=== PATIENT | male | born 1975 | race African-American/Black ===

== ENCOUNTER 2020-09-11 00:19 | Emergency (ER) | payer OTHER ==
[~2020-09-11] VITALS: Ht 198.1 cm; Wt 95.0 kg
[2020-09-11 00:20] VITALS: BP 135/78
[2020-09-11] MEDS ORDERED: CLIN300C8 PO (00:50)
[2020-09-11] MEDS ORDERED: TRAM50TA PO (00:50)
--- NOTE | 2020-09-11 00:50 | PHYS DOC ---
Past History Past Medical History: No Pertinent History Past Surgical History: No Surgical History Alcohol Use: None Drug Use: None General Adult EDM: Chief Complaint: DENTAL PROBLEM HPI: HPI: 45-year-old male presents with right upper dental pain. The patient believes that he has an infected tooth. He had a crown over this tooth that fell off and the tooth has been breaking down for some time. Over the last 2 weeks it has been bothering him more. He has an appointment scheduled with his dentist on Monday. He came in tonight because today the pain got much worse and he knows he needs to do something before Monday. Patient denies fever chills. He has no other complaints at this time. Review of Systems: Review of Systems: Constitutional: Denies fever or chills Eyes: Denies change in visual acuity HENT: Dental pain Respiratory: Denies cough or shortness of breath Cardiovascular: Denies chest pain or edema GI: Denies abdominal pain, nausea, vomiting, bloody stools or diarrhea : Denies dysuria Musculoskeletal: Denies back pain or joint pain Integument: Denies rash Neurologic: Denies headache, focal weakness or sensory changes Endocrine: Denies polyuria or polydipsia Lymphatic: Denies swollen glands Psychiatric: Denies depression or anxiety Allergies: Allergies: Allergies Coded Allergies Type Severity Reaction Last Updated Verified No Known Drug Allergies 10/01/14 No Physical Exam: PE: Constitutional: Well developed, well nourished, no acute distress, non-toxic appearance. [] HENT: Normocephalic, atraumatic, bilateral external ears normal. Right upper dental infection with cracked tooth. [] Eyes: PERRLA, EOMI, conjunctiva normal, no discharge. [] Neck: Normal range of motion, no tenderness, supple, no stridor. [] Cardiovascular:Heart rate regular rhythm, no murmur [] Lungs & Thorax: Bilateral breath sounds clear to auscultation [] Abdomen: Bowel sounds normal, soft, no tenderness, no masses, no pulsatile masses. [] Skin: Warm, dry, no erythema, no rash. [] Back: No tenderness, no CVA tenderness. [] Extremities: No tenderness, no cyanosis, no clubbing, ROM intact, no edema. [] Neurologic: Alert and oriented X 3, normal motor function, normal sensory function, no focal deficits noted. [] Psychologic: Affect normal, judgement normal, mood normal. [] EKG: EKG: [] Radiology/Procedures: Radiology/Procedures: [] Heart Score: Risk Factors: Risk Factors: DM, Current or recent (<one month) smoker, HTN, HLP, family history of CAD, obesity. Risk Scores: Score 0 - 3: 2.5% MACE over next 6 weeks - Discharge Home Score 4 - 6: 20.3% MACE over next 6 weeks - Admit for Clinical Observation Score 7 - 10: 72.7% MACE over next 6 weeks - Early Invasive Strategies Course & Med Decision Making: Course & Med Decision Making Pertinent Labs and Imaging studies reviewed. (See chart for details) The patient does appear to have an infection. I will treat him with clindamycin for 7 days. We will give the first dose in the ED. I will also give him a to go pack of tramadol and a prescription for the same. He is stable for discharge at this time [] Dragon Disclaimer: Dragon Disclaimer: This electronic medical record was generated, in whole or in part, using a voice recognition dictation system. Departure Departure: Impression: Primary Impression: Dental infection Disposition: 01 DC HOME SELF CARE/HOMELESS Condition: STABLE Referrals: ANETTE LEZAMA MD (PCP) Patient Instructions: Dental Abscess Scripts Tramadol Hcl (TRAMADOL HCL) 50 Mg Tablet 50 MG PO PRN Q6HRS PRN for PAIN, #14 TAB Prov: GARRY AMEZQUITA DO 09/11/20 Clindamycin Hcl (CLINDAMYCIN HCL) 300 Mg Capsule 1 CAP PO TID for dental infection, #21 CAP Prov: GARRY AMEZQUITA DO 09/11/20 GARRY AMEZQUITA DO Sep 11, 2020 00:50
[2020-09-11] MEDS ORDERED: START PACK - traMADol 1 STARTPACK TABLET PO ONE ×2 (00:54→01:15)
[2020-09-11] MEDS ORDERED: CLINDAMYCIN HCL 150 MG CAPSULE ONE (00:54)
[2020-09-11] MEDS ORDERED: CLINDAMYCIN HCL 150 MG CAPSULE PO ONE (01:15)
== END 2020-09-11 01:00 | disposition home or self-care (01) ==
LOC: ER 00:19
DX: K04.7 Periapical abscess without sinus (principal); K08.89 Other specified disorders of teeth and supporting structures
CPT/HCPCS: 99283

== ENCOUNTER 2020-09-16 20:38 | Emergency (ER) | payer OTHER ==
[~2020-09-16] VITALS: Ht 198.1 cm; Wt 104.5 kg
[~2020-09-16 20:38] MED LIST: CLIN300C8 PO; TRAM50TA PO
[2020-09-16 20:45] VITALS: BP 138/79
[2020-09-16] MEDS ORDERED: START PACK - traMADol 1 STARTPACK TABLET PO ONE (21:15)
[2020-09-16] MEDS ORDERED: TRAM50TA PO (21:22)
--- NOTE | 2020-09-16 21:22 | PHYS DOC ---
Past History Past Medical History: No Pertinent History Past Surgical History: No Surgical History Alcohol Use: None Drug Use: None Adult General Chief Complaint Chief Complaint: DENTAL PROBLEM HPI HPI Patient is a 45-year-old male patient presenting to the ED today complaining of mild intermittent right upper gum dental pain that has been going on for for 1 week. Patient was seen in the ED 5 days ago and was sent home on clindamycin and tramadol. He states he had an appointment with a dentist on Monday but the appointment was canceled because the provider tested positive for COVID-19. He states he has an appointment with [facility] on Monday this week. Denies any fever or trismus. Review of Systems Review of Systems Constitutional: Denies fever or chills [] Eyes: Denies change in visual acuity, redness, or eye pain [] HENT: Reports dental pain, denies nasal congestion or sore throat [] Musculoskeletal: Denies back pain or joint pain [] Integument: Denies rash or skin lesions [] Neurologic: Denies headache, focal weakness or sensory changes [] All other systems were reviewed and found to be within normal limits, except as documented in this note. Current Medications Current Medications Current Medications Medications (Trade) Dose Ordered Sig/Daniel Start Time Stop Time Status Last Admin Dose Admin Tramadol HCl (Starter Pack - Ultram) 1 startpack 1X ONCE 09/16/20 21:15 09/16/20 21:16 UNV Allergies Allergies Allergies Coded Allergies Type Severity Reaction Last Updated Verified No Known Drug Allergies 09/16/20 No Physical Exam Physical Exam Constitutional: Well developed, well nourished, no acute distress, non-toxic appearance. [] HENT: Normocephalic, atraumatic, bilateral external ears normal, oropharynx moist, no oral exudates, nose normal. [] Right upper gum around the mollars with missing broken teeth with remaining p ieces decayed. no dental abscess or erythema. dental dental on the right lower mollar. Skin: Warm, dry, no erythema, no rash. [] Back: No tenderness, no CVA tenderness. [] Extremities: No tenderness, no cyanosis, no clubbing, ROM intact, no edema. [] Neurologic: Alert and oriented X 3, normal motor function, normal sensory function, no focal deficits noted. [] Psychologic: Affect normal, judgement normal, mood normal. [] Current Patient Data Vital Signs Vital Signs Date Time Temp Pulse Resp B/P (MAP) Pulse Ox O2 Delivery O2 Flow Rate FiO2 09/16/20 20:45 97.6 90 20 138/79 (98) 98 Room Air EKG EKG [] Radiology/Procedures Radiology/Procedures [] Heart Score Risk Factors: Risk Factors: DM, Current or recent (<one month) smoker, HTN, HLP, family history of CAD, obesity. Risk Scores: Risk Factors: DM, Current or recent (<one month) smoker, HTN, HLP, family history of CAD, obesity. Course & Med Decision Making Course & Med Decision Making Pertinent Labs and Imaging studies reviewed. (See chart for details) This is a 45-year-old male who presents to the ED today for dental pain. He was seen in the ED 5 days ago and was started on clindamycin and tramadol. He ran out of pain medicine. Has an appointment with the dentist on Monday. He was encouraged to follow-up. Dragon Disclaimer Dragon Disclaimer This electronic medical record was generated, in whole or in part, using a voice recognition dictation system. Departure Departure: Impression: Primary Impression: Dentalgia Additional Impression: Infected dental carries Disposition: 01 DC HOME SELF CARE/HOMELESS Condition: STABLE Referrals: ANETTE LEZAMA MD (PCP) follow up in 1-2 weeks Patient Instructions: Dental Pain Additional Instructions: You were was seen for dental pain. Please follow-up with your dentist on Monday as scheduled. Come back to the ED at any point symptoms worsen. Make sure you complete your antibiotics Scripts Tramadol Hcl (TRAMADOL HCL) 50 Mg Tablet 50 MG PO PRN Q6HRS PRN for PAIN, #12 TAB Prov: ERIC SAINI TRADE SALES ASSISTANT 09/16/20 Problem Qualifiers PARVEENERIC TRADE SALES ASSISTANT Sep 16, 2020 21:22
== END 2020-09-16 21:20 | disposition home or self-care (01) ==
LOC: ER 20:38
DX: K02.9 Dental caries, unspecified (principal); K04.7 Periapical abscess without sinus
CPT/HCPCS: 99283

== ENCOUNTER 2020-09-28 20:25 | Emergency (ER) | payer OTHER ==
[~2020-09-28] VITALS: Ht 198.1 cm; Wt 104.9 kg
[2020-09-28 20:30] VITALS: BP 130/77
--- NOTE | 2020-09-28 20:44 | PHYS DOC ---
Past History Past Medical History: No Pertinent History Past Surgical History: No Surgical History Smoking: Cigarettes Alcohol Use: None Drug Use: None General Adult EDM: Chief Complaint: DENTAL PROBLEM HPI: HPI: ".. I got bad teeth .. this one in back is giving me fits tonight... I got the antibiotics.. I got the follow up across the street.. just need something to get me by tonight..." Patient is a 45 year old male who presents with above hx and dental pain. Patient localizes pain to teeth #1 and 2. Does have multiple other areas of decay. Tooth it location 1 is rotted into the gum. Is very tender to touch. There is no pointing abscess. There is no trismus. There is surrounding gingivitis. There is no adenopathy at angle of jaw. Patient denies any history of immunosuppression. No recent travel outside the [place] area. No specific ill contacts. Patient does have follow-up appointment. Pt. did see Dr. Lezama earlier today. Review of Systems: Review of Systems: Constitutional: Denies fever or chills Eyes: Denies change in visual acuity HENT: Complains of dental pain Respiratory: Denies cough or shortness of breath Cardiovascular: Denies chest pain or edema GI: Denies abdominal pain, nausea, vomiting, bloody stools or diarrhea : Denies dysuria Musculoskeletal: Denies back pain or joint pain Integument: Denies rash Neurologic: Denies headache, focal weakness or sensory changes Endocrine: Denies polyuria or polydipsia Lymphatic: Denies swollen glands Psychiatric: Denies depression or anxiety Family History: Family History: Noncontributory to presentation Current Medications: Current Meds: See nursing for home meds Allergies: Allergies: Allergies Coded Allergies Type Severity Reaction Last Updated Verified No Known Drug Allergies 09/16/20 No Physical Exam: PE: Constitutional: , no acute distress, non-toxic appearance. [] HENT: Normocephalic, atraumatic, bilateral external ears normal, oropharynx moist, no oral exudates, nose normal. Multiple dental caries. Patient localizes pain primarily in area of teeth 1, and 2 Eyes: PERRLA, EOMI, conjunctiva normal, no discharge. [] Neck: Normal range of motion, no tenderness, supple, no stridor. [] Cardiovascular:Heart rate regular rhythm, no murmur [] Lungs & Thorax: Bilateral breath sounds equal apex with scattered wheezes on auscultation [] Abdomen: Bowel sounds normal, soft, no tenderness, no masses, no pulsatile masses. [] Skin: Warm, dry, no erythema, no rash. [] Back: No tenderness, no CVA tenderness. [] Extremities: No tenderness, no cyanosis, no clubbing, ROM intact, no edema. [] Neurologic: Alert and oriented X 3, normal motor function, normal sensory function, no focal deficits noted. [] Psychologic: Affect anxious , judgement normal, mood normal. [] EKG: EKG: [] Radiology/Procedures: Radiology/Procedures: [] Heart Score: Risk Factors: Risk Factors: DM, Current or recent (<one month) smoker, HTN, HLP, family history of CAD, obesity. Risk Scores: Score 0 - 3: 2.5% MACE over next 6 weeks - Discharge Home Score 4 - 6: 20.3% MACE over next 6 weeks - Admit for Clinical Observation Score 7 - 10: 72.7% MACE over next 6 weeks - Early Invasive Strategies Course & Med Decision Making: Course & Med Decision Making Pertinent Labs and Imaging studies reviewed. (See chart for details) Patient continue antibiotics as previous directed. Take Tylenol and ibuprofen for pain. Patient to keep keep dental follow-up. Patient was given IM injection of Toradol here for his pain. Impression: 1. Multiple dental caries 2.. Exacerbation of dental pain in teeth area 1 and 2 3. Dental infection. [] Dragon Disclaimer: Dragon Disclaimer: This electronic medical record was generated, in whole or in part, using a voice recognition dictation system. Departure Departure: Referrals: ANETTE LEZAMA MD (PCP) LUIGI UGARTE MD Sep 28, 2020 20:44
[2020-09-28] MEDS ORDERED: KETOROLAC 60 MG/2 ML VIAL. IM ONE (21:00)
== END 2020-09-28 21:35 | disposition home or self-care (01) ==
LOC: ER 20:25
DX: K02.9 Dental caries, unspecified (principal); K04.7 Periapical abscess without sinus; F17.210 Nicotine dependence, cigarettes, uncomplicated
CPT/HCPCS: 96372; 99283; J1885

== ENCOUNTER 2020-10-04 17:15 | Emergency (ER) | payer OTHER | END 2020-10-04 17:20 | disposition left against medical advice (07) | LOC: ER 17:15 | DX: R52 Pain, unspecified (principal); Z53.21 Procedure and treatment not carried out due to patient leaving prior to being seen by health care provider ==

== ENCOUNTER 2020-10-05 22:59 | Emergency (ER) | payer OTHER ==
[~2020-10-05] VITALS: Ht 198.1 cm; Wt 93.0 kg
--- NOTE | 2020-10-05 23:26 | PHYS DOC ---
Past History Past Medical History: No Pertinent History Past Surgical History: No Surgical History Smoking: Cigarettes Alcohol Use: None Drug Use: None General Adult EDM: Chief Complaint: LACERATION/AVULSION HPI: HPI: Patient is a 45 year old male who presents for evaluation of a cut to the proximal portion palm side right fifth finger. Patient cut with a box maker wood prior to arrival. It appears to be superficial and there is no deficits to sensation or tendon function. Patient will need tetanus shot update. Wound is otherwise stable and unremarkable Review of Systems: Review of Systems: Constitutional: Denies fever or chills Eyes: Denies change in visual acuity HENT: Denies nasal congestion or sore throat Respiratory: Denies cough or shortness of breath Cardiovascular: Denies chest pain or edema GI: Denies abdominal pain, nausea, vomiting, bloody stools or diarrhea : Denies dysuria Musculoskeletal: Denies back pain or joint pain Integument: Denies rash Neurologic: Denies headache, focal weakness or sensory changes Endocrine: Denies polyuria or polydipsia Lymphatic: Denies swollen glands Psychiatric: Denies depression or anxiety Allergies: Allergies: Allergies Coded Allergies Type Severity Reaction Last Updated Verified No Known Drug Allergies 09/16/20 No Physical Exam: PE: Constitutional: Well developed, well nourished, no acute distress, non-toxic ap pearance. [] HENT: Normocephalic, atraumatic, bilateral external ears normal, oropharynx moist, nose normal. [] Eyes: PERRL, EOMI, conjunctiva normal, no discharge. [] Neck: Normal range of motion, no tenderness. [] Cardiovascular:Heart rate regular rhythm, no murmur [] Lungs & Thorax: Bilateral breath sounds clear to auscultation [] Abdomen: Bowel sounds normal, soft, no tenderness, no masses. [] Skin: Warm, dry, no erythema, no rash. [] Back: No tenderness. [] Extremities: No tenderness, no cyanosis, cut on right 5th finger, ROM intact, no edema. [] Neurologic: Alert and oriented, normal motor function, normal sensory function, no focal deficits noted. [] Psychologic: Affect normal, judgement normal, mood normal. [] EKG: EKG: [] Radiology/Procedures: Radiology/Procedures: [] Heart Score: Risk Factors: Risk Factors: DM, Current or recent (<one month) smoker, HTN, HLP, family history of CAD, obesity. Risk Scores: Score 0 - 3: 2.5% MACE over next 6 weeks - Discharge Home Score 4 - 6: 20.3% MACE over next 6 weeks - Admit for Clinical Observation Score 7 - 10: 72.7% MACE over next 6 weeks - Early Invasive Strategies Course & Med Decision Making: Course & Med Decision Making Pertinent Labs and Imaging studies reviewed. (See chart for details) [] Dragon Disclaimer: Dragon Disclaimer: This electronic medical record was generated, in whole or in part, using a voice recognition dictation system. Departure Departure: Impression: Primary Impression: Finger laceration Qualified Codes: S61.216A - Laceration without foreign body of right little finger without damage to nail, initial encounter Disposition: 01 DC HOME SELF CARE/HOMELESS Condition: STABLE Referrals: ANETTE LEZAMA MD (PCP) Patient Instructions: Laceration Care, Adult Additional Instructions: Keep finger clean and dry, your wound was closed with Dermabond. Use gentle soap and water to clean wound only Laceration/Wound Repair Laceration/Wound Repair : Wound Location: upper extremity Wound's Depth, Shape: superficial Wound Length (cm): 1 Wound Explored: clean Betadine Prep?: No Wound Repaired With: Dermabond Layer Closure?: No Sterile Dressing Applied?: Yes Splint Applied?: No Progress Stable, copy is on the proximal portion volar side right fifth finger, neurovascular intact with no tendon or neurologic deficit CARTER JORGE DO Oct 05, 2020 23:26
[2020-10-05] MEDS ORDERED: DIPH,PERTUSS(ACELL),TET VAC/PF 0.5 ML SYRINGE. VAX IM ONE ×2 (23:45→23:52)
[2020-10-06 00:04] VITALS: BP 130/68
[2020-10-07] MEDS ORDERED: TRAM50TA PO (01:14)
[2020-10-07] MEDS ORDERED: AMOX1TAB61 PO (01:14)
== END 2020-10-06 00:07 | disposition home or self-care (01) ==
LOC: ER 22:59
DX: S61.216A Laceration without foreign body of right little finger without damage to nail, initial encounter (principal); F17.210 Nicotine dependence, cigarettes, uncomplicated; W26.8XXA Contact with other sharp object(s), not elsewhere classified, initial encounter; Y93.89 Activity, other specified; Y92.89 Other specified places as the place of occurrence of the external cause; Y99.8 Other external cause status
CPT/HCPCS: 12001; 90471; 90715; 99283

== ENCOUNTER 2020-10-07 00:39 | Emergency (ER) | payer OTHER ==
[~2020-10-07] VITALS: Ht 198.1 cm; Wt 102.8 kg
[2020-10-07 00:59] VITALS: BP 125/68
[2020-10-07] MEDS ORDERED: AMOX1TAB61 PO (01:14)
[2020-10-07] MEDS ORDERED: TRAM50TA PO (01:14)
--- NOTE | 2020-10-07 01:14 | PHYS DOC ---
Past History Past Medical History: No Pertinent History Past Surgical History: No Surgical History Smoking: Cigarettes Alcohol Use: None Drug Use: None General Adult EDM: Chief Complaint: DENTAL PROBLEM HPI: HPI: 45-year-old male presents with right upper dental pain. The patient has had intermittent trouble with this part of his mouth for quite some time. He has an appointment to have the rest of his teeth removed on the , 5 days from now. It has been bothering him more yesterday and again today. He is concerned about having an infection again he took clindamycin a few weeks ago and it helped for a while. He denies fever or chills. He has no other complaints at this time. Review of Systems: Review of Systems: Constitutional: Denies fever or chills Eyes: Denies change in visual acuity HENT: Dental pain Respiratory: Denies cough or shortness of breath Cardiovascular: Denies chest pain or edema GI: Denies abdominal pain, nausea, vomiting, bloody stools or diarrhea : Denies dysuria Musculoskeletal: Denies back pain or joint pain Integument: Denies rash Neurologic: Denies headache, focal weakness or sensory changes Endocrine: Denies polyuria or polydipsia Lymphatic: Denies swollen glands Psychiatric: Denies depression or anxiety Allergies: Allergies: Allergies Coded Allergies Type Severity Reaction Last Updated Verified No Known Drug Allergies 09/16/20 No Physical Exam: PE: Constitutional: Well developed, well nourished, no acute distress, non-toxic appearance. [] HENT: Normocephalic, atraumatic, bilateral external ears normal, oropharynx moist, no oral exudates, nose normal. Dental caries. Right upper molar broken with erythematous gums. [] Eyes: PERRLA, EOMI, conjunctiva normal, no discharge. [] Neck: Normal range of motion, no tenderness, supple, no stridor. [] Cardiovascular:Heart rate regular rhythm, no murmur [] Lungs & Thorax: Bilateral breath sounds clear to auscultation [] Abdomen: Bowel sounds normal, soft, no tenderness, no masses, no pulsatile masses. [] Skin: Warm, dry, no erythema, no rash. [] Back: No tenderness, no CVA tenderness. [] Extremities: No tenderness, no cyanosis, no clubbing, ROM intact, no edema. [] Neurologic: Alert and oriented X 3, normal motor function, normal sensory function, no focal deficits noted. [] Psychologic: Affect normal, judgement normal, mood normal. [] Current Patient Data: Vital Signs: Vital Signs Date Time Temp Pulse Resp B/P (MAP) Pulse Ox O2 Delivery O2 Flow Rate FiO2 10/07/20 00:59 97.7 81 18 125/68 (87) 98 Room Air EKG: EKG: [] Radiology/Procedures: Radiology/Procedures: [] Heart Score: Risk Factors: Risk Factors: DM, Current or recent (<one month) smoker, HTN, HLP, family history of CAD, obesity. Risk Scores: Score 0 - 3: 2.5% MACE over next 6 weeks - Discharge Home Score 4 - 6: 20.3% MACE over next 6 weeks - Admit for Clinical Observation Score 7 - 10: 72.7% MACE over next 6 weeks - Early Invasive Strategies Course & Med Decision Making: Course & Med Decision Making Pertinent Labs and Imaging studies reviewed. (See chart for details) [] Dragon Disclaimer: Dragon Disclaimer: This electronic medical record was generated, in whole or in part, using a voice recognition dictation system. Departure Departure: Impression: Primary Impression: Infected dental carries Disposition: 01 DC HOME SELF CARE/HOMELESS Condition: STABLE Referrals: ANETTE LEZAMA MD (PCP) Patient Instructions: Dental Pain, [id number] Scripts Tramadol Hcl (TRAMADOL HCL) 50 Mg Tablet 50 MG PO PRN Q6HRS PRN for PAIN, #10 TAB Prov: GARRY AMEZQUITA DO 10/07/20 Amoxicillin/Potassium Clav (AUGMENTIN 875-125 TABLET) 1 Each Tablet 1 TAB PO BID for dental infection for 7 Days, #14 TAB 0 Refills Prov: GARRY AMEZQUITA DO 10/07/20 GARRY AMEZQUITA DO Oct 07, 2020 01:14
[2020-10-07] MEDS ORDERED: AMOXICILLIN/K CLAV 875/125MG TABLET. PO ONE (01:15)
[2020-10-07] MEDS ORDERED: START PACK - traMADol 1 STARTPACK TABLET PO ONE (01:30)
== END 2020-10-07 01:31 | disposition home or self-care (01) ==
LOC: ER 00:39
DX: K02.9 Dental caries, unspecified (principal); K04.7 Periapical abscess without sinus; F17.210 Nicotine dependence, cigarettes, uncomplicated
CPT/HCPCS: 99283

== ENCOUNTER 2020-10-18 16:19 | Emergency (ER) | payer OTHER ==
[~2020-10-18] VITALS: Ht 198.1 cm; Wt 100.8 kg
[~2020-10-18 16:19] MED LIST changes: +AMOX1TAB61 PO
[2020-10-18 17:09] VITALS: BP 135/80
[2020-10-18] MEDS ORDERED: ACETAMINOPHEN 325 MG TABLET PO ONE (17:15)
--- NOTE | 2020-10-18 17:18 | PHYS DOC ---
Past History Past Medical History: No Pertinent History Past Surgical History: No Surgical History Smoking: Cigarettes Alcohol Use: None Drug Use: None Adult General Chief Complaint Chief Complaint: LACERATION/AVULSION HPI HPI Patient is a 45-year-old male who presents for a left ring finger injury. Reports he was on his way to work trying to grab something on kitchen counter and accidentally grabbed a knife which penetrated the lateral portion of his left ring finger. There is no nailbed involvement. Is not on any blood thinners, has no concerning motor and/or sensory loss, no focal deficits. He is unsure if there was any foreign body retained. He does admit he recently had Tdap updated at our facility less than 1 month ago Review of Systems Review of Systems Fourteen body systems of review of systems have been reviewed. See HPI for pertinent positives and negative responses, other gray all other systems are negative, non-pertinent or non-contributory Current Medications Current Medications Current Medications Medications (Trade) Dose Ordered Sig/Daniel Start Time Stop Time Status Last Admin Dose Admin Acetaminophen (Tylenol) 650 mg 1X ONCE 10/18/20 17:15 10/18/20 17:16 UNV Allergies Allergies Allergies Coded Allergies Type Severity Reaction Last Updated Verified No Known Drug Allergies 09/16/20 No Physical Exam Physical Exam Constitutional: Well developed, well nourished, no acute distress, non-toxic appearance. HENT: Normocephalic, atraumatic, bilateral external ears normal, oropharynx moist, no oral exudates, nose normal. Eyes: PERRLA, EOMI, conjunctiva normal, no discharge. Neck: Normal range of motion, no tenderness, supple, no stridor. Cardiovascular: Heart rate regular, sinus rhythm, no murmurs rubs or gallops Lungs & Thorax: Bilateral breath sounds clear to auscultation Abdomen: Bowel sounds normal, soft, no tenderness, no masses, no pulsatile masses. Nonsurgical abdomen, no peritoneal signs Skin: Warm, dry, no erythema, no rash. Lacerated noted to lateral aspect of left ring finger approximately 9 mm in length, vertical orientation without any obvious foreign body involvement, no muscle and/or tendon involvement Back: No tenderness, no CVA tenderness. Extremities: No tenderness, no cyanosis, no clubbing, ROM intact, no edema. Cap refill less than 3 seconds in bilateral upper extremities, 2+ pulses Neurologic: Alert and oriented X 3, upper extremity normal motor & sensory function, median, ulnar and radial nerves intact, no focal deficits noted. Psychologic: Affect normal, judgement normal, anxious mood Current Patient Data Vital Signs Vital Signs Date Time Temp Pulse Resp B/P (MAP) Pulse Ox O2 Delivery O2 Flow Rate FiO2 10/18/20 17:09 98.6 72 18 135/80 (98) 97 Room Air EKG EKG [] Radiology/Procedures Radiology/Procedures [] Heart Score Risk Factors: Risk Factors: DM, Current or recent (<one month) smoker, HTN, HLP, family history of CAD, obesity. Risk Scores: Risk Factors: DM, Current or recent (<one month) smoker, HTN, HLP, family history of CAD, obesity. Course & Med Decision Making Course & Med Decision Making ABCs unremarkable Laceration without foreign body confirmed by radiograph. Patient up-to-date on tetanus. No indication for laceration repair given size and well approximated borders. Advised ongoing supportive care with close outpatient follow-up advised. No indication for antibiotics. Patient well-appearing, educated him on strict return precautions with good understanding, all questions and concerns addressed prior to ER departure in stable condition Dragon Disclaimer Dragon Disclaimer This electronic medical record was generated, in whole or in part, using a voice recognition dictation system. Departure Departure: Impression: Primary Impression: Laceration of finger of left hand Disposition: 01 DC HOME SELF CARE/HOMELESS Condition: STABLE Referrals: ANETTE LEZAMA MD (PCP) Patient Instructions: Fingertip Laceration, Laceration Care, Adult Additional Instructions: As discussed prior to ER departure, please call your primary care physician to discuss role of outpatient follow-up in upcoming 5 to 14 days after ER departure Please continue supportive care for your finger laceration. As discussed, please use Vaseline or Aquaphor and cover daily. Please continue good hand hygiene watching with soap and water per her usual routine. There is no indication for antibiotics. There is no indication for Tdap as you are already up-to-date on this If any concerning signs or symptoms present prior to outpatient follow-up please do not hesitate to come back for repeat examination Is a pleasure to take care of you and I wish you a speedy recovery! TEJ LAFLEUR DO Oct 18, 2020 17:18
--- NOTE | 2020-10-18 17:41 | RAD ---
Three-view right hand study Clinical indications: Laceration injury involving the ring finger. FINDINGS: No acute fracture or dislocation or lytic process is seen. No radiopaque foreign body is evident. IMPRESSION: No acute osseous abnormality. Electronically signed by: Matheus Montiel MD (10/18/2020 5:38 PM) [id number]
== END 2020-10-18 17:47 | disposition home or self-care (01) ==
LOC: ER 16:19
DX: S61.215A Laceration without foreign body of left ring finger without damage to nail, initial encounter (principal); F17.210 Nicotine dependence, cigarettes, uncomplicated; W26.0XXA Contact with knife, initial encounter; Y93.89 Activity, other specified; Y92.89 Other specified places as the place of occurrence of the external cause; Y99.8 Other external cause status
CPT/HCPCS: 73130; 99283

== ENCOUNTER 2020-10-30 19:32 | Emergency (ER) | payer OTHER ==
[~2020-10-30] VITALS: Ht 198.1 cm; Wt 104.0 kg
[2020-10-30 19:56] VITALS: BP 156/83
[2020-10-30] MEDS ORDERED: CHLO15MO2 SWSP (20:00)
[2020-10-30] MEDS ORDERED: NAPR-514 PO (20:00)
[2020-10-30] MEDS ORDERED: HYDR-2155 PO (20:00)
[2020-10-30] MEDS ORDERED: CLIN300C8 PO (20:03)
--- NOTE | 2020-10-30 20:03 | PHYS DOC ---
Past History Past Medical History: Asthma, COPD Past Surgical History: No Surgical History Smoking: Cigarettes Alcohol Use: None Drug Use: None General Adult EDM: Chief Complaint: DENTAL PROBLEM HPI: HPI: Patient is a 45-year-old AA male who presents to the emergency department with complaints of right upper quadrant dental pain for the last 3 days. Patient states that he has an appointment with his dentist on the of this month to have the teeth taken care of. He denies any fever, cough, nausea, vomiting, ear pain, or sore throat. He currently rates pain a 10 out of 10 on the pain scale. Patient states he has tried taking [id number] Tylenol and ibuprofen with no relief of his discomfort. He reports that he finished taking antibiotics that were prescribed by his dentist 2 weeks ago recently. Review of Systems: Review of Systems: Complete ROS is negative unless otherwise noted in HPI. Allergies: Allergies: Allergies Coded Allergies Type Severity Reaction Last Updated Verified No Known Drug Allergies 09/16/20 No Physical Exam: PE: See Above Constitutional: Well developed, well nourished, no acute distress, non-toxic appearance. [] HENT: Normocephalic, atraumatic, bilateral external ears normal, nose normal; numerous fractured teeth with gingival erythema and edema, no dental abscess in the left upper quadrant [] Eyes: PERRLA, EOMI, conjunctiva normal, no discharge. [] Neck: Normal range of motion, no stridor. [] Cardiovascular:Heart rate regular rhythm Lungs & Thorax: Respirations even and unlabored, no retractions, no respiratory distress Skin: Warm, dry, no erythema, no rash. [] Extremities: No cyanosis, ROM intact, no edema. [] Neurologic: Alert and oriented X 3, no focal deficits noted. [] Psychologic: Affect normal, judgement normal, mood normal. [] EKG: EKG: [] Radiology/Procedures: Radiology/Procedures: [] Heart Score: Risk Factors: Risk Factors: DM, Current or recent (<one month) smoker, HTN, HLP, family history of CAD, obesity. Risk Scores: Score 0 - 3: 2.5% MACE over next 6 weeks - Discharge Home Score 4 - 6: 20.3% MACE over next 6 weeks - Admit for Clinical Observation Score 7 - 10: 72.7% MACE over next 6 weeks - Early Invasive Strategies Course & Med Decision Making: Course & Med Decision Making Pertinent Labs and Imaging studies reviewed. (See chart for details) [] Kevenon Disclaimer: Moises Disclaimer: This electronic medical record was generated, in whole or in part, using a voice recognition dictation system. Departure Departure: Impression: Primary Impression: Dentalgia Additional Impressions: Gingivitis, acute Infected dental carries Disposition: HOME SELF CARE/HOMELESS Condition: STABLE Referrals: ANETTE LEZAMA MD (PCP) Patient Instructions: Dental Pain, Pate-da-Vhyx, Gingivitis, [id number] Additional Instructions: Fill prescription(s) and use as directed. Do not take more than 4000 mg of Tylenol in 1 day, each tablet of hydrocodone has 395 mg of Tylenol in it. Also do not take ibuprofen while taking the naproxen that was prescribed. Follow-up with your dentist on the as planned. Return to the ER if symptoms worsen or if fever develops. Scripts Clindamycin Hcl (CLINDAMYCIN HCL) 300 Mg Capsule 1 CAP PO TID for infection for 7 Days, #21 CAP 0 Refills Prov: SHANDA BAIN MODELING TEACHER 10/30/20 Hydrocodone Bit/Acetaminophen (HYDROCODONE-APAP 5-325 ) 1 Each Tablet 0.5-1 TAB PO PRN Q6HRS PRN for PAIN for 2 Days, #4 TAB 0 Refills Prov: SHANDA BAIN MODELING TEACHER 10/30/20 Chlorhexidine Gluconate (PERIDEX) 15 Ml Mouthwash 15 ML SWSP BID for gingivitis for 30 Days, #473 ML 0 Refills Be sure to brush your teeth before using this medication as it can cause staining. Do not eat or drink for at least 30 minutes after use. Prov: SHANDA BAIN MODELING TEACHER 10/30/20 Naproxen (NAPROXEN) 500 Mg Tablet 1 TAB PO BID for pain for 10 Days, #20 TAB 0 Refills Prov: SHANDA BAIN MODELING TEACHER 10/30/20 SHANDA BAIN MODELING TEACHER Oct 30, 2020 20:03
== END 2020-10-30 20:15 | disposition home or self-care (01) ==
LOC: ER 19:32
DX: K02.9 Dental caries, unspecified (principal); K04.7 Periapical abscess without sinus; K05.00 Acute gingivitis, plaque induced; J44.9 Chronic obstructive pulmonary disease, unspecified; F17.210 Nicotine dependence, cigarettes, uncomplicated
CPT/HCPCS: 99283

== ENCOUNTER 2020-11-01 13:26 | Emergency (ER) | payer OTHER ==
[~2020-11-01] VITALS: Ht 198.1 cm; Wt 102.0 kg
[~2020-11-01 13:26] MED LIST changes: +CHLO15MO2 SWSP; +HYDR-2155 PO; +NAPR-514 PO
[2020-11-01 13:35] VITALS: BP 133/78
--- NOTE | 2020-11-01 13:54 | PHYS DOC ---
Past History Past Medical History: Asthma, COPD Past Surgical History: No Surgical History Smoking: Cigarettes Alcohol Use: None Drug Use: None Adult General Chief Complaint Chief Complaint: FINGER INJURY [facility] HPI Patient is a 45-year-old male presents emergency department complaining of left ring finger pain. Patient states he was here on 10/18/2020 for an evaluation of a finger laceration. Patient states that it did not need repaired with sutures, patient states it has been healing well and is not showing any signs of infection in his opinion. 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 Patient states that he has no pain if the healing wound is not aggravated in any way otherwise he has pain at a 5/10 on a 1-10 pain scale if he bumps it against something. Patient reports that this pain immediately goes back down to 0 if he does not aggravate it or irritated in anyway. Patient states that he had his tetanus immunization brought up-to-date just over a month ago. Patient denies any other physical ailments or physical complaints. Review of Systems Review of Systems 14 body systems of review of systems have been reviewed. See HPI for pertinent positives and negative responses, otherwise all other systems are negative, nonpertinent or noncontributory. Current Medications Current Medications Please review nursing documentation for current medications. Allergies Allergies Allergies Uncoded Allergies Type Severity Reaction Last Updated Verified SEAFOOD Allergy Unknown 10/30/20 Physical Exam Physical Exam Constitutional: Well developed, well nourished, no acute distress, non-toxic appearance. HENT: Normocephalic, atraumatic, bilateral external ears normal, oropharynx moist, no oral exudates, nose normal. Eyes: PERRLA, EOMI, conjunctiva normal, no discharge. Neck: Normal range of motion, no tenderness, supple, no stridor. Cardiovascular:Heart rate regular rhythm, no murmur Lungs & Thorax: Bilateral breath sounds clear to auscultation Abdomen: Bowel sounds normal, soft, no tenderness, no masses, no pulsatile m asses. Skin: Warm, dry, no erythema, no rash. Well-healing avulsion skin injury to the left ring finger distal phalanx lateral aspect without signs and symptoms of infectious process, no erythema noted, distal cap refill less than 2 seconds, no swelling, no ecchymosis. Back: No tenderness, no CVA tenderness. Extremities: No tenderness, no cyanosis, no clubbing, ROM intact, no edema. Neurologic: Alert and oriented X 3, normal motor function, normal sensory function, no focal deficits noted. Psychologic: Affect normal, judgement normal, mood normal. EKG EKG [] Radiology/Procedures Radiology/Procedures [] Heart Score Risk Factors: Risk Factors: DM, Current or recent (<one month) smoker, HTN, HLP, family history of CAD, obesity. Risk Scores: Risk Factors: DM, Current or recent (<one month) smoker, HTN, HLP, family history of CAD, obesity. Course & Med Decision Making Course & Med Decision Making Pertinent Labs and Imaging studies reviewed. (See chart for details) 45-year-old male, vital signs reviewed, reports emergency room today complaining of finger pain from an avulsion injury he suffered on 10/18/2020, patient reports that when he bumps it against items it hurts and is wondering what he can do for the pain. Evaluation was unremarkable showing a well-healing avulsion skin injury of the left hand ring finger distal phalanx lateral aspect, showed no signs or symptoms of infectious process, discussed with patient that we could place an aluminum finger splint over the finger that he can use to pro tect it from bumping up against items while the healing process continues. Patient gave verbal understanding of aluminum finger splint use, return to ER concerns, follow-up with primary care physician, patient had no further questions or concerns, patient discharged home without incident. Diagnosis left hand ring finger pain, healing wound. Unlikely infectious process, unlikely deep tissue infection. Dragon Disclaimer Dragon Disclaimer This electronic medical record was generated, in whole or in part, using a voice recognition dictation system. Departure Departure: Impression: Primary Impression: Finger pain, left Additional Impression: Healing wound Disposition: 01 DC HOME SELF CARE/HOMELESS Condition: GOOD Referrals: ANETTE LEZAMA MD (PCP) Additional Instructions: You have been seen for a reevaluation of your left hand ring finger avulsion injury that you suffered on 10/18/2020, your skin wound is healing very well, continue to take care of it as you are doing at home. You can use the aluminum finger splint as protection from pain from your finger bumping up against objects and causing you discomfort. You do not need to wear this splint while at work as we discussed. Please return to the emergency department for worsening symptoms or other concerns. Please follow-up with your primary care physician for further evaluation. Problem Qualifiers HAYLEY SPANN APRN Nov 01, 2020 13:54
== END 2020-11-01 14:00 | disposition home or self-care (01) ==
LOC: ER 13:26
DX: M79.645 Pain in left finger(s) (principal); J44.9 Chronic obstructive pulmonary disease, unspecified; Z91.013 Allergy to seafood
CPT/HCPCS: 29130; 99283

== ENCOUNTER 2020-11-14 18:54 | Emergency (ER) | payer OTHER ==
[~2020-11-14] VITALS: Ht 198.1 cm; Wt 102.0 kg
--- NOTE | 2020-11-14 18:56 | PHYS DOC ---
Past History Past Medical History: Asthma, COPD Past Surgical History: No Surgical History Smoking: Cigarettes Alcohol Use: None Drug Use: None General Adult HPI: HPI: ".. this teeth here are killing me... my face is getting swollen again.. I had just completed my antibiotics.. and was to see the dental surgery.. but it got cancel again because of COVID...." Patient is a 45 year old male [email or web address] employee who presents with above hx and complaingts of dental pain, infection and facial swelling. Primary area of dental infection and area of pain is in the area of teeth location 32,31, 30 and 1. Currently no pointing abscess appreciated. Facial swelling and right erythema appreciated outside of oral cavity. The patient has been seen previously at the first of the month on 10/30 dental infection and 11/01 finger injury. Patient did complete a course of antibiotics and did have follow-up with oral surgery however was canceled because of recent Covid pandemic. Patient denies any history of immunosuppression. Patient denies any specific ill contacts. No recent travel. Patient does have adenopathy at angle jaw and now some facial swelling. No true trismus appreciated. Patient's tetanus is up-to-date. Patient normally follows with Dr. Lezama. Patient does smoke cigarettes. Review of Systems: Review of Systems: Constitutional: Subjective history of fever or chills Eyes: Denies change in visual acuity HENT: Denies nasal congestion or sore throat . Complains of right facial swelling, dental pain, and gingivitis. Respiratory: Denies cough or shortness of breath Cardiovascular: Denies chest pain or edema GI: Denies abdominal pain, nausea, vomiting, bloody stools or diarrhea : Denies dysuria Musculoskeletal: Denies back pain or joint pain Integument: Denies rash Neurologic: Denies headache, focal weakness or sensory changes Endocrine: Denies polyuria or polydipsia Lymphatic: Denies swollen glands Psychiatric: Denies depression or anxiety Family History: Family History: Noncontributory to presentation Current Medications: Current Meds: See nursing for home meds Allergies: Allergies: Allergies Uncoded Allergies Type Severity Reaction Last Updated Verified SEAFOOD Allergy Unknown 10/30/20 Physical Exam: PE: Constitutional: in acute distress, non-toxic appearance. [] HENT: Normocephalic, atraumatic, bilateral external ears normal, oropharynx moist, no oral exudates, nose normal. Multiple dental caries, but significant swelling and facial swelling right mandible. Did have some adenopathy. No trismus. Eyes: PERRLA, EOMI, conjunctiva normal, no discharge. [] Neck: Normal range of motion, no tenderness, supple, no stridor. [] Cardiovascular:Heart rate regular rhythm, no murmur [] Lungs & Thorax: Bilateral breath sounds equal apex with scattered wheezes auscultation [] Abdomen: Bowel sounds normal, soft, no tenderness, no masses, no pulsatile masses. [] Skin: Warm, dry, no erythema, no rash. [] Back: No tenderness, no CVA tenderness. [] Extremities: No tenderness, no cyanosis, no clubbing, ROM intact, no edema. [] Neurologic: Alert and oriented X 3, normal motor function, normal sensory function, no focal deficits noted. [] Psychologic: Affect anxious, judgement normal, mood normal. [] EKG: EKG: [] Radiology/Procedures: Radiology/Procedures: [] Heart Score: Risk Factors: Risk Factors: DM, Current or recent (<one month) smoker, HTN, HLP, family history of CAD, obesity. Risk Scores: Score 0 - 3: 2.5% MACE over next 6 weeks - Discharge Home Score 4 - 6: 20.3% MACE over next 6 weeks - Admit for Clinical Observation Score 7 - 10: 72.7% MACE over next 6 weeks - Early Invasive Strategies Course & Med Decision Making: Course & Med Decision Making Pertinent Labs and Imaging studies reviewed. (See chart for details) Patient advised nothing completed in the ED will fix his underlying problem of his facial cellulitis and dental infection. Will need extraction of the offending teeth. Must continue to follow-up dentist and oral surgeon. Will resume a course of Keflex 500x3 times a day. Patient to rinse mouth with Listerine or hydrogen peroxide 4 times a day. Monitor for increasing infection and swelling. Take Tylenol and ibuprofen for pain. For marked pain may take Vicoprofen up to 4 times a day. Follow-up primary care. Encourage patient stop smoking. Patient advised because of the increased swelling and facial cellulitis may need expansion of his antibiotic coverage if it does not respond to the Keflex. [] Dragon Disclaimer: Dragon Disclaimer: This electronic medical record was generated, in whole or in part, using a voice recognition dictation system. Departure Departure: Referrals: ANETTE LEZAMA MD (PCP) Scripts Hydrocodone/Ibuprofen (HYDROCODONE-IBUPROFEN 7.5-200 ) 1 Each Tablet 1 TAB PO PRN Q6HRS PRN for PAIN, #30 TAB 0 Refills Prov: LUIGI UGARTE MD 11/14/20 Cephalexin (KEFLEX) 500 Mg Capsule 500 MG PO TID for abscess, #30 BOTTLE Prov: LUIGI UGARTE MD 11/14/20 Dragjenni Disclaimer This chart was dictated in whole or in part using Voice Recognition software in a busy, high-work load, and often noisy Emergency Department environment. It may contain unintended and wholly unrecognized errors or omissions. LUIGI UGARTE MD Nov 14, 2020 18:56
[2020-11-14 19:11] VITALS: BP 145/97
[2020-11-14] MEDS ORDERED: CEPHALEXIN 250 MG CAPSULE PO ONE (19:30)
[2020-11-14] MEDS ORDERED: HYDROcodon/IBUPROFEN 7.5/200MG 1 TAB TABLET PO ONE (19:30)
[2020-11-14] MEDS ORDERED: CEPH-264 PO (19:33)
[2020-11-14] MEDS ORDERED: HYDR-1179 PO (19:33)
== END 2020-11-14 19:48 | disposition home or self-care (01) ==
LOC: ER 18:54
DX: K02.9 Dental caries, unspecified (principal); L03.211 Cellulitis of face; J44.9 Chronic obstructive pulmonary disease, unspecified; F17.210 Nicotine dependence, cigarettes, uncomplicated; Z91.013 Allergy to seafood
CPT/HCPCS: 99283

== ENCOUNTER 2020-11-20 19:42 | Emergency (ER) | payer OTHER ==
[~2020-11-20] VITALS: Ht 190.5 cm; Wt 104.8 kg
[~2020-11-20 19:42] MED LIST changes: +CEPH-264 PO; +HYDR-1179 PO
[2020-11-20 19:54] VITALS: BP 133/102
[2020-11-20] MEDS ORDERED: IBUP600T16 PO (19:54)
--- NOTE | 2020-11-20 19:54 | PHYS DOC ---
Past History Past Medical History: Asthma, COPD (HAYLEY SPANN APRN) Past Surgical History: No Surgical History (HAYLEY SPANN APRN) Smoking: Cigarettes Alcohol Use: None Drug Use: None (HAYLEY SPANN APRN) Adult General Chief Complaint Chief Complaint: DENTAL PROBLEM HPI HPI Patient is a 45-year-old male presents emergency department for refill of pain medication. Patient has poor dental caries, seeing a dentist and has an appointment on December 16 for repair of his tooth. Patient was here 5 days ago was given 30 tablets of [place] and started on Keflex, patient seen his dentist in the meantime and was changed to clindamycin. Patient states he is out of his [place] and requires pain medication. Patient denies any other health ailments or health concerns. (HAYLEY SPANN APRN) Review of Systems Review of Systems 14 body systems of review of systems have been reviewed. See HPI for pertinent positives and negative responses, otherwise all other systems are negative, nonpertinent or noncontributory. (HAYLEY SPANN APRN) Allergies Allergies Allergies Uncoded Allergies Type Severity Reaction Last Updated Verified SEAFOOD Allergy Unknown 10/30/20 (HAYLEY SPANN APRN) Physical Exam Physical Exam Constitutional: Well developed, well nourished, no acute distress, non-toxic appearance. [] HENT: Normocephalic, atraumatic, bilateral external ears normal, oropharynx moist, no oral exudates, nose normal. Poor dental caries, multiple missing teeth broken teeth. Eyes: PERRLA, EOMI, conjunctiva normal, no discharge. [] Neck: Normal range of motion, no tenderness, supple, no stridor. [] Cardiovascular:Heart rate regular rhythm, no murmur [] Lungs & Thorax: Bilateral breath sounds clear to auscultation [] Abdomen: Bowel sounds normal, soft, no tenderness, no masses, no pulsatile masses. [] Skin: Warm, dry, no erythema, no rash. [] Back: No tenderness, no CVA tenderness. [] Extremities: No tenderness, no cyanosis, no clubbing, ROM intact, no edema. [] Neurologic: Alert and oriented X 3, normal motor function, normal sensory function, no focal deficits noted. [] Psychologic: Affect normal, judgement normal, mood normal. [] (HAYLEY SPANN APRN) EKG EKG [] (HAYLEY SPANN APRN) Radiology/Procedures Radiology/Procedures [] (HAYLEY SPANN APRN) Heart Score Risk Factors: Risk Factors: DM, Current or recent (<one month) smoker, HTN, HLP, family history of CAD, obesity. Risk Scores: Risk Factors: DM, Current or recent (<one month) smoker, HTN, HLP, family history of CAD, obesity. (HAYLEY SPANN APRN) Course & Med Decision Making Course & Med Decision Making Pertinent Labs and Imaging studies reviewed. (See chart for details) 45-year-old male returning to the emergency department for more pain medications for his dentalgia. Patient was given 20 tablets 600 mg Motrin for his dentalgia. Discussed patient needing to see his dentist for pain control. Patient states he comes here to get something to make his pain go away. Patient discharged home without incident. (HAYLEY SPANN APRN) Dragon Disclaimer Dragon Disclaimer This electronic medical record was generated, in whole or in part, using a voice recognition dictation system. (HAYLEY SPANN APRN) Attending Co-Sign I oversaw on the above date of service of this patient and discussed the care with the MACHINE SET UP OPERATOR PAPER GOODS. I agree with the findings, plan of care, and disposition as documented. Patient is pain seeking, needs to establish in outpatient setting with dentist. No emergent findings today requiring diagnostic work-up and/or intervention in ER setting (TEJ LAFLEUR DO) Departure Departure: Impression: Primary Impression: Dentalgia Disposition: 01 DC HOME SELF CARE/HOMELESS Condition: GOOD Referrals: ANETTE LEZAMA MD (PCP) Additional Instructions: Keep your appointment with your dentist. Scripts Ibuprofen (IBUPROFEN) 600 Mg Tablet 600 MG PO TID PRN PRN for PAIN, #20 TAB 0 Refills Prov: HAYLEY SPANN APRN 11/20/20 HAYLEY SPANN APRN Nov 20, 2020 19:54 TEJ LAFLEUR DO Nov 21, 2020 18:26
== END 2020-11-20 20:07 | disposition home or self-care (01) ==
LOC: ER 19:42
DX: K02.9 Dental caries, unspecified (principal); Z76.0 Encounter for issue of repeat prescription; F17.210 Nicotine dependence, cigarettes, uncomplicated; J44.9 Chronic obstructive pulmonary disease, unspecified; Z91.013 Allergy to seafood
CPT/HCPCS: 99282

== ENCOUNTER 2020-12-02 18:36 | Emergency (ER) | payer OTHER ==
[~2020-12-02] VITALS: Ht 198.1 cm; Wt 103.5 kg
[~2020-12-02 18:36] MED LIST changes: -CLIN300C8 PO; +CLIN300C9 PO; +IBUP600T16 PO
[2020-12-02 18:46] VITALS: BP 138/84
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
== END 2020-12-02 19:10 | disposition home or self-care (01) ==
LOC: ER 18:36
DX: M54.5 Low back pain (principal); F17.210 Nicotine dependence, cigarettes, uncomplicated; Z88.5 Allergy status to narcotic agent; V89.2XXA Person injured in unspecified motor-vehicle accident, traffic, initial encounter; Y93.I9 Activity, other involving external motion; Y92.89 Other specified places as the place of occurrence of the external cause; Y99.8 Other external cause status
CPT/HCPCS: 99282

== ENCOUNTER 2020-12-05 18:53 | Emergency (ER) | payer OTHER ==
[~2020-12-05] VITALS: Ht 198.1 cm; Wt 103.0 kg
[2020-12-05 19:00] VITALS: BP 138/84
[2020-12-05] MEDS ORDERED: CYCL-331 PO (19:26)
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
[2020-12-05] MEDS ORDERED: KETOROLAC 30 MG/ML VIAL. IM ONE (19:30)
== END 2020-12-05 19:37 | disposition home or self-care (01) ==
LOC: ER 18:53
DX: M79.18 Myalgia, other site (principal); M54.5 Low back pain; M54.6 Pain in thoracic spine; M25.511 Pain in right shoulder; M25.512 Pain in left shoulder; J44.9 Chronic obstructive pulmonary disease, unspecified; F17.210 Nicotine dependence, cigarettes, uncomplicated; Z88.5 Allergy status to narcotic agent
CPT/HCPCS: 96372; 99283; J1885

== ENCOUNTER 2020-12-14 15:14 | Emergency (ER) | payer OTHER ==
[~2020-12-14] VITALS: Ht 198.1 cm; Wt 103.4 kg
[~2020-12-14 15:14] MED LIST changes: +CYCL-331 PO
[2020-12-14] MEDS ORDERED: ALBUTEROL SULFATE 8GM INHALER. INH ONE (16:00)
[2020-12-14] MEDS ORDERED: ALBUTEROL SULFATE 2.5 MG/3 ML NEBU. NEB ONE (16:00)
--- NOTE | 2020-12-14 16:26 | RAD ---
XR CHEST 1V History: Reason: sob / Spl. Instructions: / History: Comparison: October 01, 2014 Findings: Ill-defined mid and bibasilar opacities. No pleural effusion. No pneumothorax. Portable technique acc entuates cardiac size. Prior granulomatous disease within the chest. Impression: 1. Ill-defined mid and bibasilar opacities, may represent atelectasis or infiltrates including viral pneumonia. Electronically signed by: Tristen Covington DO (12/14/2020 4:23 PM) [id number]
--- NOTE | 2020-12-14 16:26 | EKG ---
[facility] ED 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
[2020-12-14 16:49] VITALS: BP 126/64
--- NOTE | 2020-12-14 16:49 | PHYS DOC ---
Past History Past Medical History: Asthma, COPD Past Surgical History: No Surgical History Smoking: Cigarettes Alcohol Use: None Drug Use: None General Adult EDM: Chief Complaint: DYSPNEA/RESPIRATOY DISTRESS HPI: HPI: Patient is a 45-year-old male who presents with shortness of breath when he was going up a flight of stairs today. Patient has history of asthma and is out of his inhaler and nebulizer treatments at home. Patient states "I cannot get my prescriptions until Monday when I get paid". Patient reports symptoms are similar to what he normally feels like with asthma exacerbations. Patient denies fever, cough or recent illness. Review of Systems: Review of Systems: Constitutional: Denies fever or chills Eyes: Denies change in visual acuity HENT: Denies nasal congestion or sore throat Respiratory: Denies cough reports shortness of breath Cardiovascular: Denies chest pain or edema GI: Denies abdominal pain, nausea, vomiting, bloody stools or diarrhea : Denies dysuria Musculoskeletal: Denies back pain or joint pain Integument: Denies rash Neurologic: Denies headache, focal weakness or sensory changes Endocrine: Denies polyuria or polydipsia Lymphatic: Denies swollen glands Psychiatric: Denies depression or anxiety Current Medications: Current Meds: Current Medications Medications (Trade) Dose Ordered Sig/Daniel Start Time Stop Time Status Last Admin Dose Admin Albuterol Sulfate (Ventolin Hfa Inhaler) 1 puff 1X ONCE 12/14/20 16:00 12/14/20 16:18 DC 12/14/20 16:22 1 PUFF Albuterol Sulfate (Ventolin) 2.5 mg 1X ONCE 12/14/20 16:00 12/14/20 16:18 DC 12/14/20 16:12 2.5 MG Allergies: Allergies: Allergies Coded Allergies Type Severity Reaction Last Updated Verified codeine Allergy Intermediate 12/02/20 Yes gluten Allergy Mild Itching 12/05/20 Yes Uncoded Allergies Type Severity Reaction Last Updated Verified oreo cookies Allergy Mild Itching 12/05/20 wheat flour Allergy Mild Itching 12/05/20 SEAFOOD Allergy Unknown 10/30/20 Physical Exam: PE: Constitutional: Well developed, well nourished, no acute distress, non-toxic appearance. [] HENT: Normocephalic, atraumatic, bilateral external ears normal, oropharynx moist, no oral exudates, nose normal. [] Eyes: PERRLA, EOMI, conjunctiva normal, no discharge. [] Neck: Normal range of motion, no tenderness, supple, no stridor. [] Cardiovascular:Heart rate regular rhythm, no murmur [] Lungs & Thorax: Bilateral breath sounds clear to auscultation [] Abdomen: Bowel sounds normal, soft, no tenderness, no masses, no pulsatile masses. [] Skin: Warm, dry, no erythema, no rash. [] Back: No tenderness, no CVA tenderness. [] Extremities: No tenderness, no cyanosis, no clubbing, ROM intact, no edema. [] Neurologic: Alert and oriented X 3, normal motor function, normal sensory func tion, no focal deficits noted. [] Psychologic: Affect normal, judgement normal, mood normal. [] Current Patient Data: Vital Signs: Vital Signs Date Time Temp Pulse Resp B/P (MAP) Pulse Ox O2 Delivery O2 Flow Rate FiO2 12/14/20 15:20 98.1 79 20 128/78 (95) 97 Room Air EKG: EKG: [] Normal sinus rhythm, heart rate 84 bpm. Radiology/Procedures: Radiology/Procedures: []XR CHEST 1V History: Reason: sob / Spl. Instructions: / History: Comparison: October 01, 2014 Findings: Ill-defined mid and bibasilar opacities. No pleural effusion. No pneumothorax. Portable technique accentuates cardiac size. Prior granulomatous disease within the chest. Impression: 1. Ill-defined mid and bibasilar opacities, may represent atelectasis or infiltrates including viral pneumonia. Electronically signed by: Tristen Covington DO (12/14/2020 4:23 PM) [id number] Heart Score: Risk Factors: Risk Factors: DM, Current or recent (<one month) smoker, HTN, HLP, family history of CAD, obesity. Risk Scores: Score 0 - 3: 2.5% MACE over next 6 weeks - Discharge Home Score 4 - 6: 20.3% MACE over next 6 weeks - Admit for Clinical Observation Score 7 - 10: 72.7% MACE over next 6 weeks - Early Invasive Strategies Course & Med Decision Making: Course & Med Decision Making Pertinent Labs and Imaging studies reviewed. (See chart for details) [] Patient is a 45-year-old male who presents with shortness of breath when he was going up a flight of stairs today. Patient has history of asthma and is out of his inhaler and nebulizer treatments at home. Patient states "I cannot get my prescriptions until Monday when I get paid". Patient reports symptoms are similar to what he normally feels like with asthma exacerbations. Patient denies fever, cough or recent illness. Chest x-ray ordered. Respiratory treatment ordered. Patient discharged to home with inhaler. Patient to follow-up with his PCP for his 90-day prescription for his asthma management. Dragon Disclaimer: Dragon Disclaimer: This electronic medical record was generated, in whole or in part, using a voice recognition dictation system. Departure Departure: Impression: Primary Impression: Asthma exacerbation Qualified Codes: J45.31 - Mild persistent asthma with (acute) exacerbation Disposition: DC HOME SELF CARE/HOMELESS Condition: IMPROVED Referrals: ANETTE LEZAMA MD (PCP) Patient Instructions: Asthma, Adult, [id number] Additional Instructions: You are seen in the emergency room today for shortness of breath after walking up a flight of stairs. You were given a respiratory treatment while in the ER and sent home with an albuterol inhaler until you can get to your primary care physician on Monday. Please return to the emergency room with worsening symptoms or concerns otherwise follow-up with your primary care. EMERGENCY DEPARTMENT GENERAL DISCHARGE INSTRUCTIONS Thank you for coming to [facility] (ED) today and trusting us with you care. We trust that you had a positivie experience in our Emergency Department. If you wish to speak to the department management, you may call the director at [phone]. YOUR FOLLOW UP INSTRUCTIONS ARE FOLLOWS: 1. Do you have a private Doctor? If you do not have a private doctor, please ask for a resource list of physicians or clinics that may be able to assist you with follow up care. 2. The Emergency Physician has interpreted your x-rays. The X-Ray specialist will also review them. If there is a change in the findings, you will be notified in 48 hours when at all possible. 3. A lab test or culture has been done, your results will be reviewed and you will be notified if you need a change in treatment. ADDITIONAL INSTRUCTIONS AND INFORMATION: 1. Your care today has been supervised by a physician who is specially trained in emergency care. Many problems require more than one evaluation for a complete diagnosis and treatment. We recommend that you schedule your follow up appointment as recommended to ensure complete treatment of you illness or injury. If you are unable to obtain follow up care and continue to have a problem, or if your condition worsens, we recommend that you return to the ED. 2. We are not able to safely determine your condition over the phone nor are we able to give sound medical advice over the phone. For these safety reasons, if you call for medical advice we will ask you to come to the ED for further evaluation. 3. If you have any questions regarding these discharge instructions please call the ED at [phone]. SAFETY INFORMATION: In the interest of safety, wellness, and injury prevention; we encourage you to wear your sealbelt, if you smoke; quite smoking, and we encourage family to use a protective helmet for bicycling and other sporting events that present an increased risk for head injury. IF YOUR SYMPTOMS WORSEN OR NEW SYMPTOMS DEVELOP, OR YOU HAVE CONCERNS ABOUT YOUR CONDITION; OR IF YOUR CONDITION WORSENS WHILE YOU ARE WAITING FOR YOUR FOLLOW UP APPOINTMENT; EITHER CONTACT YOUR PRIMARY CARE DOCTOR, THE PHYSICIAN WHOSE NAME AND NUMBER YOU WERE GIVEN, OR RETURN TO THE ED IMMEDIATELY. DEB ROBERSON APRN Dec 14, 2020 16:49
== END 2020-12-14 16:55 | disposition home or self-care (01) ==
LOC: ER 15:14
DX: J45.31 Mild persistent asthma with (acute) exacerbation (principal); J44.9 Chronic obstructive pulmonary disease, unspecified; F17.210 Nicotine dependence, cigarettes, uncomplicated; Z88.5 Allergy status to narcotic agent; Z88.8 Allergy status to other drugs, medicaments and biological substances
CPT/HCPCS: 71045; 93005; 94640; 99284; J7613; 94664

== ENCOUNTER 2021-01-03 00:43 | Emergency (ER) | payer OTHER ==
[~2021-01-03] VITALS: Ht 198.1 cm; Wt 104.3 kg
--- NOTE | 2021-01-03 00:50 | PHYS DOC ---
Past History Past Medical History: Asthma, COPD Past Medical History Frequent ED visits for Dental Pain, gingivitis and dental caries Past Surgical History: No Surgical History Smoking: Cigarettes Alcohol Use: None Drug Use: None General Adult HPI: HPI: ".. This cold air is making my bad teeth. hurt really bad.. this one here in back.. got my jaw. ...swollen.. and now it is giving fits tonight.. I got an apt. on 01/06 at [facility] to get these pulled out... 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 Pt. has multiple dental caries, gingivitis, and now some right mandible and cheek cellulitis apparently from dental pain and infection. Patient adenopathy at angle of mandible Rt. Pt. localizes majority of pain tonight at fracture 2. Teeth at this location decay into gum line. Recent fracture of Molar 2- with exposed pulp. Patient does have a history of frequent visits for dental pain. Patient does have history of musculoskeletal complaints. Patient does have history of asthma and COPD. Patient still smokes. Patient normally follows with Dr. Lezama for primary. No recent travel. No specific ill contacts. Patient denies any history immunosuppression. Review of Systems: Review of Systems: Constitutional: Denies fever or chills Eyes: Denies change in visual acuity HENT: Denies nasal congestion or sore throat . Complains of dental pain Respiratory: Denies cough or shortness of breath Cardiovascular: Denies chest pain or edema GI: Denies abdominal pain, nausea, vomiting, bloody stools or diarrhea : Denies dysuria Musculoskeletal: Denies back pain or joint pain Integument: Denies rash Neurologic: Denies headache, focal weakness or sensory changes Endocrine: Denies polyuria or polydipsia Lymphatic: Denies swollen glands Psychiatric: Denies depression or anxiety Family History: Family History: Noncontributory to presentation Current Medications: Current Meds: See nursing for home meds Allergies: Allergies: Allergies Coded Allergies Type Severity Reaction Last Updated Verified codeine Allergy Intermediate 12/02/20 Yes gluten Allergy Mild Itching 12/05/20 Yes Uncoded Allergies Type Severity Reaction Last Updated Verified oreo cookies Allergy Mild Itching 12/05/20 wheat flour Allergy Mild Itching 12/05/20 SEAFOOD Allergy Unknown 10/30/20 Physical Exam: PE: Constitutional: inacute distress, non-toxic appearance. [] HENT: Normocephalic, atraumatic, bilateral external ears normal, oropharynx moist, no oral exudates, nose normal. Gingivitis, multiple dental caries, and now a freshly fractured molar #2. Eyes: PERRLA, EOMI, conjunctiva normal, no discharge. [] Neck: Normal range of motion, no tenderness, supple, no stridor. [] Cardiovascular:Heart rate regular rhythm, no murmur [] Lungs & Thorax: Bilateral breath sounds equal apex with scattered wheezes on auscultation [] Abdomen: Bowel sounds normal, soft, no tenderness, no masses, no pulsatile masses. [] Skin: Warm, dry, no erythema, no rash. [] Back: No tenderness, no CVA tenderness. [] Extremities: No tenderness, no cyanosis, no clubbing, ROM intact, no edema. [] Neurologic: Alert and oriented X 3, normal motor function, normal sensory function, no focal deficits noted. [] Psychologic: Affect anxious judgement normal, mood normal. [] EKG: EKG: [] Radiology/Procedures: Radiology/Procedures: [] Heart Score: Risk Factors: Risk Factors: DM, Current or recent (<one month) smoker, HTN, HLP, family history of CAD, obesity. Risk Scores: Score 0 - 3: 2.5% MACE over next 6 weeks - Discharge Home Score 4 - 6: 20.3% MACE over next 6 weeks - Admit for Clinical Observation Score 7 - 10: 72.7% MACE over next 6 weeks - Early Invasive Strategies Course & Med Decision Making: Course & Med Decision Making Pertinent Labs and Imaging studies reviewed. (See chart for details) Rinse mouth with Listerine 4 times a day. Take Tylenol and ibuprofen for pain. Take Keflex 500 mg 3 times a day. Must keep follow-up with dentist and oral surgery. Have multiple areas of her teeth need to be removed. Patient informed nothing we do tonight in the emergency room will fix the underlying cause of his dental pain. Must have follow-up. Encourage patient not to smoke. ( Pt. request Rx. for Clindamycin for his dental infection. - states this has worked better for him in the past._) Note with pt. the cost frequently higher for clindamycin. Keep follow-up at [facility] as scheduled on 01/06/2021 Impression: 1. Dental pain 2. Fractured molar #2 3. Multiple dental caries 4. Gingivitis 5. History of asthma and COPD 6. Tobacco use. [] Dragon Disclaimer: Dragon Disclaimer: This electronic medical record was generated, in whole or in part, using a voice recognition dictation system. Departure Departure: Referrals: ANETTE LEZAMA MD (PCP) Scripts Clindamycin Hcl (CLINDAMYCIN HCL) 300 Mg Capsule 300 MG PO TID for dental infection for 14 Days, #42 CAP Prov: LUIGI UGARTE MD 01/03/21 Cephalexin (KEFLEX) 750 Mg Capsule 500 MG PO TID for dental infection for 14 Days, #28 CAP Prov: LUIGI UGARTE MD 01/03/21 Attending Co-Sign Attending Co-Sign The patient was seen and interviewed as well as examined at the bedside. The chart was reviewed. The case was discussed. Agree with the plan of care. Dragon Disclaimer This chart was dictated in whole or in part using Voice Recognition software in a busy, high-work load, and often noisy Emergency Department environment. It may contain unintended and wholly unrecognized errors or omissions. LUIGI UGARTE MD Jan 03, 2021 00:50
[2021-01-03] MEDS ORDERED: CEPH750C9 PO (01:08)
[2021-01-03] MEDS ORDERED: cefTRIAXone IM 1 GM VIAL IM ONE (01:30)
[2021-01-03] MEDS ORDERED: KETOROLAC 60 MG/2 ML VIAL. IM ONE (01:30)
[2021-01-03] MEDS ORDERED: ONDANSETRON ODT 4 MG TAB.RAPDIS ONE (01:40)
[2021-01-03] MEDS ORDERED: ONDANSETRON ODT 4 MG TAB.RAPDIS PO ONE (01:45)
[2021-01-03 01:49] VITALS: BP 127/65
[2021-01-03] MEDS ORDERED: CLIN300C9 PO (02:02)
== END 2021-01-03 02:00 | disposition home or self-care (01) ==
LOC: ER 00:43
DX: S02.5XXA Fracture of tooth (traumatic), initial encounter for closed fracture (principal); J44.9 Chronic obstructive pulmonary disease, unspecified; K05.10 Chronic gingivitis, plaque induced; Z91.013 Allergy to seafood; Z88.5 Allergy status to narcotic agent; X58.XXXA Exposure to other specified factors, initial encounter; Y93.89 Activity, other specified; Y92.89 Other specified places as the place of occurrence of the external cause; Y99.8 Other external cause status
CPT/HCPCS: 96372; 99284; J0696; J1885; Q0162

== ENCOUNTER 2021-01-19 19:07 | Emergency (ER) | payer OTHER ==
[~2021-01-19] VITALS: Ht 198.1 cm; Wt 104.3 kg
[~2021-01-19 19:07] MED LIST changes: +CEPH750C9 PO
[2021-01-19] MEDS ORDERED: ACETAMINOPHEN 500 MG TABLET PO ONE (19:30)
[2021-01-19] MEDS ORDERED: AMOXICILLIN/K CLAV 875/125MG TABLET. PO ONE (19:30)
[2021-01-19] MEDS ORDERED: IBUPROFEN 600 MG TABLET. PO ONE (19:30)
[2021-01-19] MEDS ORDERED: AMOX1TAB61 PO (19:37)
[2021-01-19] MEDS ORDERED: OXYC5TAB88 PO (19:37)
--- NOTE | 2021-01-19 19:37 | PHYS DOC ---
Past History Past Medical History: Asthma, COPD, Other Additional Past Medical Histor: poor dental health Past Surgical History: No Surgical History Smoking: Cigarettes Alcohol Use: None Drug Use: None Adult General HPI HPI Patient is a 45-year-old male who presents with toothache. Patient states that his upper right back molar broke off several months ago but has not had time to see a dentist. States he has been in the emergency department recently and was given antibiotics. States he was supposed to follow-up with a dentist but has not been able to. States he did finish his antibiotics. States he has a tooth ache in the area, 6 out of 10, dull and achy in nature. Denies any headache, fevers, pain or trouble swallowing, nausea, vomiting. States he has poor dentition generally and does need to see a dentist. Review of Systems Review of Systems Review of systems otherwise unremarkable except noted in HPI Allergies Allergies Allergies Coded Allergies Type Severity Reaction Last Updated Verified Fish Containing Products Allergy Intermediate 01/03/21 Yes codeine Allergy Intermediate 01/03/21 Yes shellfish derived Allergy Intermediate 01/03/21 Yes wheat Allergy Intermediate Itching 01/03/21 Yes gluten Allergy Mild Itching 01/03/21 Yes Uncoded Allergies Type Severity Reaction Last Updated Verified oreo cookies Allergy Mild Itching 12/05/20 Physical Exam Physical Exam Constitutional: Well developed, well nourished, no acute distress, non-toxic appearance. [] HENT: Normocephalic, atraumatic, bilateral external ears normal, oropharynx moist, no oral exudates, nose normal. Patient has poor general dentition. Upper right back molar appears to have broken off and has some mild tenderness and redness around the site. Rest of the soft tissue in the mouth appears infection free. No mastoid tenderness. [] Eyes: conjunctiva normal, no discharge. [] Neck: Normal range of motion, no tenderness, supple, no stridor. No lymphadenopathy [] Extremities: No tenderness, no cyanosis, no clubbing, ROM intact, no edema. [] Neurologic: Alert and oriented X 3, normal motor function, normal sensory function, no focal deficits noted. [] Psychologic: Affect normal, judgement normal, mood normal. [] EKG EKG [] Radiology/Procedures Radiology/Procedures [] Heart Score Risk Factors: Risk Factors: DM, Current or recent (<one month) smoker, HTN, HLP, family history of CAD, obesity. Risk Scores: Risk Factors: DM, Current or recent (<one month) smoker, HTN, HLP, family history of CAD, obesity. Course & Med Decision Making Course & Med Decision Making Patient is a 45-year-old male who presents with toothache and need for dental referral Vital signs not concerning. Physical exam noted above. Patient drove in to the emergency department so started on Tylenol, and ibuprofen in the ED. Offered dental block but patient politely declined. Started on Augmentin in the ED. Discussed pain management at home. Gave contact information for local dentists and advised to call first thing in the morning. Advised to come back to the ED with new or concerning symptoms. Patient grateful, verbalized understanding and agreed with plan of discharge. [] Dragon Disclaimer Dragon Disclaimer This electronic medical record was generated, in whole or in part, using a voice recognition dictation system. Departure Departure: Impression: Primary Impression: Pain, dental Disposition: 01 DC HOME SELF CARE/HOMELESS Condition: GOOD Referrals: ANETTE LEZAMA MD (PCP) Patient Instructions: Dental Caries, Dental Injury, Dental Pain, [id number] Additional Instructions: Please read all of the attached information. Please take your antibiotics as prescribed. As discussed. Please use Tylenol, ibuprofen and Orajel as needed at home for pain as your base. Please use your prescription pain medicine only for breakthrough. You were given contact information for local dentist. Please call first thing in the morning until you find a dentist that you can get into see within the next 10 days before your antibiotics for now. As discussed your tooth either needs a root canal or extraction and the infection and/or pain that you are experiencing most likely will not subside until this is done. As discussed, come back to the emergency department with concerning or new symptoms. Scripts Oxycodone HCl (Roxicodone) 5 Mg Tablet 5 MG PO BID for dental pain for 3 Days, #6 TAB 0 Refills Prov: CARTER CHRISTENSEN MD 01/19/21 Amoxicillin/Potassium Clav (AUGMENTIN 875-125 TABLET) 1 Each Tablet 1 TAB PO BID for dental infection for 10 Days, #19 TAB 0 Refills Prov: CARTER CHRISTENSEN MD 01/19/21 CARTER CHRISTENSEN MD Jan 19, 2021 19:37
[2021-01-19 19:50] VITALS: BP 132/85
== END 2021-01-19 19:50 | disposition home or self-care (01) ==
LOC: ER 19:07
DX: K08.89 Other specified disorders of teeth and supporting structures (principal); J44.9 Chronic obstructive pulmonary disease, unspecified; F17.210 Nicotine dependence, cigarettes, uncomplicated; Z88.5 Allergy status to narcotic agent; Z91.018 Allergy to other foods; Z91.013 Allergy to seafood
CPT/HCPCS: 99284

== ENCOUNTER 2021-01-28 19:24 | Emergency (ER) | payer OTHER ==
[~2021-01-28] VITALS: Ht 198.1 cm; Wt 104.3 kg
[~2021-01-28 19:24] MED LIST changes: +OXYC5TAB88 PO
[2021-01-28 19:37] VITALS: BP 138/97
[2021-01-28] MEDS ORDERED: AMOX1TAB61 PO (19:49)
[2021-01-28] MEDS ORDERED: HYDR-2155 PO (19:49)
--- NOTE | 2021-01-28 19:50 | PHYS DOC ---
Past History Past Medical History: Asthma, COPD, Other Additional Past Medical Histor: poor dental health Past Surgical History: No Surgical History Smoking: Cigarettes Alcohol Use: None Drug Use: None Adult General Chief Complaint Chief Complaint: DENTAL PROBLEM HPI HPI Patient is a 45-year-old male who presents with dental pain. States that he broke off his left lower molar a long time ago and has been causing him problems. States he does have a dental appointment coming up in 10 days, and is currently on antibiotics given in the emergency department but is worried that the infection has not gone away. States he is still having intermittent pain, 6 out of 10, sharp in nature if he tries to eat or drink anything. Denies any fevers, pain or trouble swallowing, headache, ear pain, mastoid tenderness, nausea, vomiting. Review of Systems Review of Systems Review of systems otherwise unremarkable except noted in HPI Allergies Allergies Allergies Coded Allergies Type Severity Reaction Last Updated Verified Fish Containing Products Allergy Intermediate 01/03/21 Yes codeine Allergy Intermediate 01/03/21 Yes shellfish derived Allergy Intermediate 01/03/21 Yes wheat Allergy Intermediate Itching 01/03/21 Yes gluten Allergy Mild Itching 01/03/21 Yes Uncoded Allergies Type Severity Reaction Last Updated Verified oreo cookies Allergy Mild Itching 12/05/20 Physical Exam Physical Exam Constitutional: Well developed, well nourished, no acute distress, non-toxic appearance. [] HENT: Normocephalic, atraumatic, bilateral external ears normal, oropharynx moist, poor dentition, left lower molar appears to have broken off with some mild tenderness around the site with mild erythema. Eyes: conjunctiva normal, no discharge. [] Neck: Normal range of motion, no tenderness, supple, no stridor. [] Cardiovascular:Heart rate regular rhythm, no murmur [] Neurologic: Alert and oriented X 3, normal motor function, normal sensory function, no focal deficits noted. [] Psychologic: Affect normal, judgement normal, mood normal. [] EKG EKG [] Radiology/Procedures Radiology/Procedures [] Heart Score C/O Chest Pain: No Risk Factors: Risk Factors: DM, Current or recent (<one month) smoker, HTN, HLP, family history of CAD, obesity. Risk Scores: Risk Factors: DM, Current or recent (<one month) smoker, HTN, HLP, family history of CAD, obesity. Course & Med Decision Making Course & Med Decision Making Patient is a 45-year-old male who presents with dental pain Vital signs not concerning. Physical exam noted above. Patient started on Augmentin in the ED Patient states he has an appointment coming up in 10 days but was worried that the antibiotics he is on is not working as he is still having some discomfort when eating and drinking. Discussed with patient the need to have tooth removed and until then his symptoms would not be resolved as he probably has a smoldering infection that will not go away until resolved. Started on Augmentin in the emergency department. Offered dental block with patient declined. Gave pain recommendations at home. Gave contact information for emergency dentist. Gave strict return precautions to the ED. Patient grateful, verbalized understanding and agreed with plan of discharge. [] Dragon Disclaimer Dragon Disclaimer This electronic medical record was generated, in whole or in part, using a voice recognition dictation system. Departure Departure: Impression: Primary Impression: Chronic dental pain Disposition: 01 DC HOME SELF CARE/HOMELESS Condition: GOOD Referrals: ANETTE LEZAMA MD (PCP) Patient Instructions: Dental Caries, Dental Injury Additional Instructions: Please read all the attached information. Please use Tylenol, ibuprofen, Orajel as discussed and your prescription pain medicine as needed for breakthrough. Please call the emergency tooth pain center at [phone] first thing in the morning to establish care and set up an appointment for emergency tooth removal. Their address is [address] [place] [address]., [address], [place] [address] Please come back to the emergency department immediately with new or concerning symptoms. Scripts Hydrocodone Bit/Acetaminophen (HYDROCODONE-APAP 5-325 ) 1 Each Tablet 1 TAB PO BID PRN for tooth pain for 5 Days, #10 TAB 0 Refills Prov: CARTER CHRISTENSEN MD 01/28/21 Amoxicillin/Potassium Clav (AUGMENTIN 875-125 TABLET) 1 Each Tablet 1 TAB PO BID for tooth infection for 7 Days, #13 TAB 0 Refills Prov: CARTER CHRISTENSEN MD 01/28/21 CARTER CHRISTENSEN MD Jan 28, 2021 19:50
[2021-01-28] MEDS ORDERED: AMOXICILLIN/K CLAV 875/125MG TABLET. ONE (19:55)
[2021-01-28] MEDS: AMOXICILLIN/K CLAV 875/125MG TABLET. PO ONE (20:00)
== END 2021-01-28 20:04 | disposition home or self-care (01) ==
LOC: ER 19:24
DX: K08.89 Other specified disorders of teeth and supporting structures (principal); G89.29 Other chronic pain; J44.9 Chronic obstructive pulmonary disease, unspecified; F17.210 Nicotine dependence, cigarettes, uncomplicated; Z91.013 Allergy to seafood; Z91.018 Allergy to other foods; Z88.8 Allergy status to other drugs, medicaments and biological substances
CPT/HCPCS: 99283

== ENCOUNTER 2021-02-08 01:15 | Emergency (ER) | payer OTHER ==
--- NOTE | 2021-02-08 01:35 | PHYS DOC ---
Past History Past Medical History: Asthma, COPD, Other Additional Past Medical Histor: poor dental health Past Surgical History: No Surgical History Smoking: Cigarettes Alcohol Use: None Drug Use: None General Adult EDM: Chief Complaint: DENTAL PROBLEM HPI: HPI: " All my teeth are hurting tonight.. I do have an [facility]. at [facility] [place] onWed. at10:00 toget a bunch of them pulled out..." Patient is a 45 year old male who presents with complaints of multiple areas of dental pain. Patient does have multiple areas of dental infection and gingivitis. Patient last seen on the and received a prescription for antibiotics and hydrocodone.. At that time he received his prescription with hydrocodone 10 tablets and amoxicillin for 7 days. Since that time he has been started on clindamycin. The patient has multiple ED visits for dental pain. Patient requesting narcotic pain meds. Refuses Tylenol and ibuprofen. Patient refuses IM injection of Toradol. Patient informed that he was driving his own vehicle. Had advised him to return with a minibus driver if he wished the narcotic pain meds while in the emergency department. Patient continue his current clindamycin antibiotics. Patient must keep his dental appointment at [facility] oral surgery clinic. Patient normally follows with Dr. Lezama. Patient has a past medical history of COPD. Patient does continue to smoke. Patient also has history of hypertension but is noncompliant with meds. Patient denies any immunosuppression. Patient denies any travel. Patient denies any specific ill contacts. Patient denies any trismus Review of Systems: Review of Systems: Constitutional: Denies fever or chills Eyes: Denies change in visual acuity HENT: Denies nasal congestion or sore throat . Complains of multiple sites of dental pain Respiratory: Denies cough or shortness of breath Cardiovascular: Denies chest pain or edema GI: Denies abdominal pain, nausea, vomiting, bloody stools or diarrhea : Denies dysuria Musculoskeletal: Denies back pain or joint pain Integument: Denies rash Neurologic: Denies headache, focal weakness or sensory changes Endocrine: Denies polyuria or polydipsia Lymphatic: Denies swollen glands Psychiatric: Denies depression or anxiety Family History: Family History: Noncontributory to presentation Current Medications: Current Meds: See nursing for home meds Allergies: Allergies: Allergies Coded Allergies Type Severity Reaction Last Updated Verified Fish Containing Products Allergy Intermediate 2/14/21 Yes codeine Allergy Intermediate 01/03/21 Yes shellfish derived Allergy Intermediate 01/03/21 Yes wheat Allergy Intermediate Itching 01/03/21 Yes gluten Allergy Mild Itching 01/03/21 Yes Uncoded Allergies Type Severity Reaction Last Updated Verified oreo cookies Allergy Mild Itching 12/05/20 Physical Exam: PE: Constitutional: reports acute distress, non-toxic appearance. [] HENT: Normocephalic, atraumatic, bilateral external ears normal, oropharynx moist, no oral exudates, nose normal. Multiple areas of dental decay into the gums and gingivitis Eyes: PERRLA, EOMI, conjunctiva normal, no discharge. [] Neck: Normal range of motion, no tenderness, supple, no stridor. [] Cardiovascular:Heart rate regular rhythm, no murmur [] Lungs & Thorax: Bilateral breath sounds equal apex with scattered wheezes on auscultation [] Abdomen: Bowel sounds normal, soft, no tenderness, no masses, no pulsatile masses. [] Skin: Warm, dry, no erythema, no rash. [] Back: No tenderness, no CVA tenderness. [] Extremities: No tenderness, no cyanosis, no clubbing, ROM intact, no edema. [] Neurologic: Alert and oriented X 3, normal motor function, normal sensory function, no focal deficits noted. [] Psychologic: Affect anxious, judgement normal, mood normal. [] EKG: EKG: [] Radiology/Procedures: Radiology/Procedures: [] Heart Score: C/O Chest Pain: No Risk Factors: Risk Factors: DM, Current or recent (<one month) smoker, HTN, HLP, family history of CAD, obesity. Risk Scores: Score 0 - 3: 2.5% MACE over next 6 weeks - Discharge Home Score 4 - 6: 20.3% MACE over next 6 weeks - Admit for Clinical Observation Score 7 - 10: 72.7% MACE over next 6 weeks - Early Invasive Strategies Course & Med Decision Making: Course & Med Decision Making Pertinent Labs and Imaging studies reviewed. (See chart for details) Patient return with a minibus driver of a wishes to have narcotic pain meds while in the emergency department. Patient continue his antibiotics. Patient continue Tylenol and ibuprofen for pain. Patient return if any concerns. Must keep dental surgery appointment follow-up on 1C. Impression: 1. Multiple areas of dental caries and gingivitis 2. Appears to have narcotic seeking behaviors 3. History of asthma 4. History of COPD 5 . History continued tobacco use. [] Dragon Disclaimer: Dragon Disclaimer: This electronic medical record was generated, in whole or in part, using a voice recognition dictation system. Departure Departure: Referrals: ANETTE LEZAMA MD (PCP) Moises Disclaimer This chart was dictated in whole or in part using Voice Recognition software in a busy, high-work load, and often noisy Emergency Department environment. It may contain unintended and wholly unrecognized errors or omissions. Dragon Disclaimer This chart was dictated in whole or in part using Voice Recognition software in a busy, high-work load, and often noisy Emergency Department environment. It may contain unintended and wholly unrecognized errors or omissions. Dragon Disclaimer This chart was dictated in whole or in part using Voice Recognition software in a busy, high-work load, and often noisy Emergency Department environment. It may contain unintended and wholly unrecognized errors or omissions. LUIGI UGARTE MD Feb 08, 2021 01:35
[2021-02-08] MEDS ORDERED: HYDROcodon/IBUPROFEN 7.5/200MG 1 TAB TABLET PO ONE (02:00)
== END 2021-02-08 02:30 | disposition home or self-care (01) ==
LOC: ER 01:15
DX: K02.9 Dental caries, unspecified (principal); K05.10 Chronic gingivitis, plaque induced; J44.9 Chronic obstructive pulmonary disease, unspecified; F17.210 Nicotine dependence, cigarettes, uncomplicated; Z76.5 Malingerer [conscious simulation]; Z91.013 Allergy to seafood; Z88.5 Allergy status to narcotic agent; Z91.018 Allergy to other foods
CPT/HCPCS: 99282

== ENCOUNTER 2021-03-08 19:56 | Emergency (ER) | payer OTHER ==
[~2021-03-08] VITALS: Ht 198.1 cm; Wt 104.3 kg
[2021-03-08 20:15] VITALS: BP 120/73
[2021-03-08] MEDS ORDERED: ACETAMINOPHEN 500 MG TABLET PO ONE ×2 (20:15→20:18)
[2021-03-08] MEDS ORDERED: IBUPROFEN 800 MG TABLET. PO ONE ×2 (20:18→20:30)
--- NOTE | 2021-03-08 20:19 | PHYS DOC ---
Past History Past Medical History: Asthma, COPD, Other Additional Past Medical Histor: poor dental health Past Surgical History: No Surgical History Smoking: Cigarettes Alcohol Use: None Drug Use: None Adult General Chief Complaint Chief Complaint: DENTAL PROBLEM HPI HPI Patient is a 45-year-old male who presents with dental pain. States that he had a molar on the bottom and more on the top pulled today and got some hydrocodone. States he is taken 5 mg hydrocodone which gets his pain down to about 3 out of 10 but he wants to go on and the hydrocodone is not doing getting the pain to 0. States he did call his dentist back. States he did not take any other medica tions. Denies any other medical complaints. Requesting high dose narcotics. Review of Systems Review of Systems Review of systems otherwise unremarkable except noted in HPI Allergies Allergies Allergies Coded Allergies Type Severity Reaction Last Updated Verified Fish Containing Products Allergy Intermediate 01/03/21 Yes codeine Allergy Intermediate 01/03/21 Yes shellfish derived Allergy Intermediate 01/03/21 Yes wheat Allergy Intermediate Itching 01/03/21 Yes gluten Allergy Mild Itching 01/03/21 Yes Uncoded Allergies Type Severity Reaction Last Updated Verified oreo cookies Allergy Mild Itching 12/05/20 Physical Exam Physical Exam Constitutional: Well developed, well nourished, no acute distress, non-toxic ap pearance. [] HENT: Normocephalic, atraumatic, bilateral external ears normal, oropharynx moist, no oral exudates, nose normal. Patient has a back left molar and upper right molar that has been removed. Socket looks clean with no erythema or edema. Patient has poor dentition generally [] Eyes: conjunctiva normal, no discharge. [] Neck: Normal range of motion, no tenderness, Neurologic: Alert and oriented X 3, normal motor function, normal sensory function, no focal deficits noted. [] Psychologic: Affect normal, judgement normal, mood normal. [] EKG EKG [] Radiology/Procedures Radiology/Procedures [] Heart Score C/O Chest Pain: No Risk Factors: Risk Factors: DM, Current or recent (<one month) smoker, HTN, HLP, family history of CAD, obesity. Risk Scores: Risk Factors: DM, Current or recent (<one month) smoker, HTN, HLP, family history of CAD, obesity. Course & Med Decision Making Course & Med Decision Making Patient is a 45-year-old male who presents to emergency department with dental pain after having molars pulled today Vital signs not concerning. Physical exam noted above. Patient offered dental block, which he refused. Given Tylenol and ibuprofen. Discussed pain management at home. Advised to call his dentist first thing in the morning to update on ED visit and discuss need for follow-up visit. Patient grateful, verbalized understanding and agreed with plan of discharge. [] Dragon Disclaimer Dragon Disclaimer This electronic medical record was generated, in whole or in part, using a voice recognition dictation system. Departure Departure: Impression: Primary Impression: Pain, dental Disposition: HOME / SELF CARE / HOMELESS Condition: GOOD Referrals: ANETTE LEZAMA MD (PCP) Patient Instructions: Dental Pain, [id number] Additional Instructions: Please read all of the attached information. Please continue to take your hydrocodone prescribed to you by your dentist today. You can also use ibuprofen and warm salt water gargles as discussed. As discussed your sockets look clean, dry and clotted off. I do not see any other injuries. Please call your dentist first thing in the morning to discuss your ED visit and set up a follow- up as needed. Please come back to the ED immediately with new or concerning symptoms. CARTER CHRISTENSEN MD Mar 08, 2021 20:19
== END 2021-03-08 20:29 | disposition home or self-care (01) ==
LOC: ER 19:56
DX: K08.89 Other specified disorders of teeth and supporting structures (principal); J45.909 Unspecified asthma, uncomplicated; J44.9 Chronic obstructive pulmonary disease, unspecified; F17.210 Nicotine dependence, cigarettes, uncomplicated; Z88.5 Allergy status to narcotic agent; Z91.013 Allergy to seafood; Z91.018 Allergy to other foods; Z88.8 Allergy status to other drugs, medicaments and biological substances
CPT/HCPCS: 99282

== ENCOUNTER → 2021-03-09 | Emergency (ER) | payer OTHER ==
[~2021-03-09] VITALS: Ht 198.1 cm; Wt 106.5 kg
[~2021-03-09] MED LIST changes: +oxyCODONE/APAP 5/325 1 TAB TABLET PO ONE
--- NOTE | 2021-03-09 23:37 | PHYS DOC ---
Past History Past Medical History: Asthma, COPD, Other Additional Past Medical Histor: poor dental health Past Surgical History: Other Additional Past Surgical Histo: teeth extraction Smoking: Cigarettes Alcohol Use: None Drug Use: None Adult General Chief Complaint Chief Complaint: DENTAL PROBLEM HPI HPI Patient is a 45-year-old male who presents with dental pain. States that he had his tooth pulled 2 days ago and has been taking hydrocodone but is still having pain, 4 out of 10. States he try to get into his dentist earlier today but was unable to and is going tomorrow. Denies fevers, pain or trouble swallowing, neck pain or swelling, chest pain, shortness of breath, nausea vomiting. States he just needs some pain management until he sees his dentist tomorrow. Review of Systems Review of Systems Review of systems otherwise unremarkable except noted in HPI Allergies Allergies Allergies Coded Allergies Type Severity Reaction Last Updated Verified Fish Containing Products Allergy Intermediate 01/03/21 Yes codeine Allergy Intermediate 01/03/21 Yes shellfish derived Allergy Intermediate 01/03/21 Yes wheat Allergy Intermediate Itching 01/03/21 Yes gluten Allergy Mild Itching 01/03/21 Yes Uncoded Allergies Type Severity Reaction Last Updated Verified oreo cookies Allergy Mild Itching 12/05/20 Physical Exam Physical Exam Constitutional: Well developed, well nourished, no acute distress, non-toxic appearance. [] HENT: Normocephalic, atraumatic, bilateral external ears normal, oropharynx moist, no oral exudates, nose normal. Bottom left molar and upper right molar removed, with hemostasis achieved and no obvious erythema or edema. [] Eyes: conjunctiva normal, no discharge. [] Neck: Normal range of motion, no tenderness, supple, no stridor. [] Psychologic: Affect normal, judgement normal, mood normal. [] EKG EKG [] Radiology/Procedures Radiology/Procedures [] Heart Score C/O Chest Pain: No Risk Factors: Risk Factors: DM, Current or recent (<one month) smoker, HTN, HLP, family history of CAD, obesity. Risk Scores: Risk Factors: DM, Current or recent (<one month) smoker, HTN, HLP, family history of CAD, obesity. Course & Med Decision Making Course & Med Decision Making Patient is a 45-year-old male who presents with dental pain requesting narcotics Vital signs not concerning. Physical exam noted above. Patient given 1 dose of Percocet. Advised on pain control at home. Advised to keep his appointment tomorrow with his dentist to discuss need for further treatment. Gave strict return precautions to the ED. Patient grateful, verbalized understanding and agreed with plan of discharge. [] Dragon Disclaimer Dragon Disclaimer This electronic medical record was generated, in whole or in part, using a voice recognition dictation system. Departure Departure: Disposition: HOME / SELF CARE / HOMELESS Condition: GOOD Referrals: ANETTE LEZAMA MD (PCP) Patient Instructions: Dental Pain, [id number] Additional Instructions: Please read all the attached information. Please continue your hydrocodone, ibuprofen regimen at home as prescribed by your dentist. Please keep your dental appointment tomorrow morning. Please come back to the ED with new or concerning symptoms. CARTER CHRISTENSEN MD Mar 09, 2021 23:37
[2021-03-10 00:21] VITALS: BP 133/79
== END ==
LOC: ER 22:26
DX: K08.89 Other specified disorders of teeth and supporting structures (principal); J44.9 Chronic obstructive pulmonary disease, unspecified; F17.210 Nicotine dependence, cigarettes, uncomplicated; Z91.013 Allergy to seafood; Z88.5 Allergy status to narcotic agent; Z91.018 Allergy to other foods
CPT/HCPCS: 99283

== ENCOUNTER 2021-04-13 22:46 | Emergency (ER) | payer OTHER ==
[~2021-04-13] VITALS: Ht 198.1 cm; Wt 104.0 kg
[~2021-04-13 22:46] MED LIST changes: -oxyCODONE/APAP 5/325 1 TAB TABLET PO ONE
--- NOTE | 2021-04-13 23:30 | EKG ---
[address] [address] Test Date: 2021-04-13 Test Time: 22:54:12 Pat Name: DONTE HEALY Department: Room: Gender: M Supply Person: : 1975 Requested By: HAYLEY PURVIS Order Number: [id number] Reading MD: Measurements Intervals [place] Rate: 80 P: 46 CT: 164 QRS: 14 QRSD: 76 T: 14 QT: 348 QTc: 405 Interpretive Statements SINUS RHYTHM NORMAL ECG RI6.02 No previous ECG available for comparison
[2021-04-14 00:01] LABS: BASO # 0.1 x10^3/uL (0.0-0.2); BASO % 1 % (0-3); EOS # 0.3 x10^3/uL (0.0-0.7); EOS % 4 % (0-3); HEMATOCRIT 35.6 % (39.0-53.0); HEMOGLOBIN 11.7 g/dL (13.0-17.5); LYMPH # 2.3 x10^3/uL (1.0-4.8); LYMPH % 39 % (24-48); MEAN CORPUSCULAR HEMOGLOBIN 27 pg (25-35); MEAN CORPUSCULAR HGB CONC 33 g/dL (31-37); MEAN CORPUSCULAR VOLUME 82 fL (79-100); MONO # 0.5 x10^3/uL (0.0-1.1); MONO % 9 % (0-9); NEUT # 2.6 x10^3uL (1.8-7.7); NEUT % 46 % (31-73); PLATELET COUNT 154 x10^3/uL (140-400); RED BLOOD COUNT 4.33 x10^6/uL (4.30-5.70); RED CELL DISTRIBUTION WIDTH 14.7 % (11.5-14.5); WHITE BLOOD COUNT 5.8 x10^3/uL (4.0-11.0)
[2021-04-14 00:12] LABS: CALCIUM 8.6 mg/dL (8.5-10.1); CREATININE 1.3 mg/dL (0.7-1.3); GFR 72.9; POTASSIUM 3.6 mmol/L (3.5-5.1)
--- NOTE | 2021-04-14 00:18 | RAD ---
XR CHEST 2V Technique: PA and lateral views of the chest were obtained. Clinical History: Reason: right chest pain HX: COPD, asthma / Spl. Instructions: / History: Comparison: December 14, 2020. Findings: The heart is normal size. The pulmonary vessels appear normal. There is vague patchy reticular opaci ties of the lungs bilaterally. The pleural margins are clear. Impression: Mild bilateral interstitial infiltrates suggesting atypical pneumonia.. Electronically signed by: Franco Park III, MD (04/14/2021 12:16 AM) [facility]
[2021-04-14 00:23] LABS: ALBUMIN 3.5 g/dL (3.4-5.0); ALBUMIN/GLOBULIN RATIO 0.9 (1.0-1.7); MAGNESIUM 2.2 mg/dL (1.8-2.4); TOTAL BILIRUBIN 0.3 mg/dL (0.2-1.0); TOTAL PROTEIN 7.3 g/dL (6.4-8.2)
[2021-04-14] MEDS ORDERED: KETOROLAC 15 MG/ML VIAL. IVP ONE (00:30)
[2021-04-14] MEDS ORDERED: ORPH-16 PO (00:33)
[2021-04-14] MEDS ORDERED: AZIT250T6 PO (00:33)
--- NOTE | 2021-04-14 00:33 | PHYS DOC ---
Past History Additional Past Medical Histor: poor dental health Additional Past Surgical Histo: teeth extraction Smoking: Cigarettes Alcohol Use: None Drug Use: None General Adult EDM: Chief Complaint: BACK PAIN OR INJURY HPI: HPI: 45-year-old male presents with left low back pain and chest pain which started after lifting some "turbines "yesterday with a friend. Patient reports he feels like he lifted over "10,000 pounds ". Patient reports upon returning home his arms felt very weak. Patient reports he was told there was some bruising to his left low back at site of his pain. Denies known trauma. Denies fever or chills. Patient does report some cough and shortness of breath. Reports some right upper chest wall pain. Denies leg swelling or calf tenderness. Denies history of DVT/PE. Denies known exposure to COVID-19. Patient reports he was tested 1 week ago on for COVID from his work which was negative. Review of Systems: Review of Systems: Constitutional: Denies fever or chills Eyes: Denies redness or eye pain HENT: Denies nasal congestion or sore throat Respiratory: Reports cough and shortness of breath Cardiovascular: Reports chest pain; denies palpitations GI: Denies abdominal pain, nausea, or vomiting : Denies dysuria or hematuria Musculoskeletal: Reports left lower back pain; denies leg pain Integument: Denies rash; reports bruising Neurologic: Denies headache, focal weakness or sensory changes Complete systems were reviewed and found to be within normal limits, except as documented in this note. Current Medications: Current Meds: Current Medications Medications (Trade) Dose Ordered Sig/[facility] Start Time Stop Time Status Last Admin Dose Admin Ketorolac Tromethamine (Toradol 15mg Vial) 15 mg 1X ONCE 04/14/21 00:30 04/14/21 00:31 04/14/21 00:01 15 MG Allergies: Allergies: Allergies Coded Allergies Type Severity Reaction Last Updated Verified Fish Containing Products Allergy Intermediate 01/03/21 Yes codeine Allergy Intermediate 01/03/21 Yes shellfish derived Allergy Intermediate 01/03/21 Yes wheat Allergy Intermediate Itching 01/03/21 Yes gluten Allergy Mild Itching 01/03/21 Yes Uncoded Allergies Type Severity Reaction Last Updated Verified oreo cookies Allergy Mild Itching 12/05/20 Physical Exam: PE: Constitutional: Well developed, well nourished, no acute distress, non-toxic appearance HENT: Normocephalic, atraumatic Eyes: Conjunctiva normal, no discharge Neck: Normal range of motion, no tenderness, supple Lungs & Thorax: No respiratory distress, equal chest rise and fall, right upper anterior chest wall pain which is reproducible on palpation Abdomen: Soft, no tenderness Skin: Warm, dry, no erythema, no rash, small area of ecchymosis to left paraspinal lumbar region Back: No midline tenderness, no CVA tenderness, left mid lumbar paraspinal tenderness on palpation Extremities: No tenderness, ROM intact, no edema Neurologic: Alert and oriented X 3, normal motor function, normal sensory function, no focal deficits noted Psychologic: Affect normal, judgment normal Current Patient Data: Labs: Laboratory Tests Test 04/13/21 22:58 White Blood Count 5.8 x10^3/uL (4.0-11.0) Red Blood Count 4.33 x10^6/uL (4.30-5.70) Hemoglobin 11.7 g/dL (13.0-17.5) L Hematocrit 35.6 % (39.0-53.0) L Mean Corpuscular Volume 82 fL (79-100) Mean Corpuscular Hemoglobin 27 pg (25-35) Mean Corpuscular Hemoglobin Concent 33 g/dL (31-37) Red Cell Distribution Width 14.7 % (11.5-14.5) H Platelet Count 154 x10^3/uL (140-400) Neutrophils (%) (Auto) 46 % (31-73) Lymphocytes (%) (Auto) 39 % (24-48) Monocytes (%) (Auto) 9 % (0-9) Eosinophils (%) (Auto) 4 % (0-3) H Basophils (%) (Auto) 1 % (0-3) Neutrophils # (Auto) 2.6 x10^3uL (1.8-7.7) Lymphocytes # (Auto) 2.3 x10^3/uL (1.0-4.8) Monocytes # (Auto) 0.5 x10^3/uL (0.0-1.1) Eosinophils # (Auto) 0.3 x10^3/uL (0.0-0.7) Basophils # (Auto) 0.1 x10^3/uL (0.0-0.2) Sodium Level 143 mmol/L (136-145) Potassium Level 3.6 mmol/L (3.5-5.1) Chloride Level 107 mmol/L (98-107) Carbon Dioxide Level 27 mmol/L (21-32) Anion Gap 9 (6-14) Blood Urea Nitrogen 16 mg/dL (8-26) Creatinine 1.3 mg/dL (0.7-1.3) Estimated GFR (Cockcroft-Gault) 72.9 BUN/Creatinine Ratio 12 (6-20) Glucose Level 137 mg/dL (70-99) H Calcium Level 8.6 mg/dL (8.5-10.1) Magnesium Level 2.2 mg/dL (1.8-2.4) Total Bilirubin 0.3 mg/dL (0.2-1.0) Aspartate Amino Transferase (AST) 21 U/L (15-37) Alanine Aminotransferase (ALT) 32 U/L (16-63) Alkaline Phosphatase 75 U/L (46-116) Creatine Kinase 471 U/L (39-308) H Creatine Kinase MB (Mass) 2.3 ng/mL (0.0-3.6) Creatine Kinase MB Relative Index 0.5 % (0-4) Troponin I Quantitative < 0.017 ng/mL (0-0.055) TO-Okj-U-Type Natriuretic Peptide 33 pg/mL (0-124) Total Protein 7.3 g/dL (6.4-8.2) Albumin 3.5 g/dL (3.4-5.0) Albumin/Globulin Ratio 0.9 (1.0-1.7) L Lipase 131 U/L (73-393) Vital Signs: Vital Signs Date Time Temp Pulse Resp B/P (MAP) Pulse Ox O2 Delivery O2 Flow Rate FiO2 04/13/21 23:10 97.1 80 16 148/70 (96) 98 Room Air EKG: EKG: @2254 NSR at 80bpm, NO ST elevation, QRS 76ms, QT/QTc 348/405ms Radiology/Procedures: Radiology/Procedures: PROCEDURE: CHEST PA & LATERAL XR CHEST 2V Technique: PA and lateral views of the chest were obtained. Clinical History: Reason: right chest pain HX: COPD, asthma / Spl. Instructions: / History: Comparison: December 14, 2020. Findings: The heart is normal size. The pulmonary vessels appear normal. There is vague patchy reticular opacities of the lungs bilaterally. The pleural margins are clear. Impression: Mild bilateral interstitial infiltrates suggesting atypical pneumonia.. Electronically signed by: Franco Park III, MD (04/14/2021 12:16 AM) [facility] Heart Score: C/O Chest Pain: Yes HEART Score for Chest Pain: HEART Score for Chest Pain Response (Comments) Value History Slighlty/Non-Suspicious 0 ECG Normal 0 Age < 45 0 Risk Factors 1 or 2 Risk Factors 1 Troponin < Normal Limit 0 Total 1 Risk Factors: Risk Factors: DM, Current or recent (<one month) smoker, HTN, HLP, family history of CAD, obesity. Risk Scores: Score 0 - 3: 2.5% MACE over next 6 weeks - Discharge Home Score 4 - 6: 20.3% MACE over next 6 weeks - Admit for Clinical Observation Score 7 - 10: 72.7% MACE over next 6 weeks - Early Invasive Strategies Course & Med Decision Making: Course & Med Decision Making Pertinent Labs and Imaging studies reviewed. (See chart for details) Patient presents with left mid lumbar paraspinal tenderness as well as right anterior chest wall pain. Patient does report lifting heavy objects all day yesterday. No history of trauma. No midline spinal tenderness appreciated. EKG stable. Labs obtained and posted to chart. Troponin within normal limits. Symptomatic treatment provided. Chest x-ray obtained with findings concerning for atypical pneumonia. Patient does report cough and some shortness of air. Cannot fully exclude COVID-19. Patient denies COVID-19 vaccination. Reports he recently tested negative at work last . COVID testing pending. Prescription for empiric antibiotics provided. Will also provide prescription for muscle relaxers. HEART score 1. PERC negative. Patient stable for discharge with outpatient follow-up with PCP. Discussed findings and plan with patient, who acknowledges understanding and agreement. COVID-19 CRITERIA: The patient was evaluated during the global COVID-19 pandemic, and that diagnosis was suspected/considered upon their initial presentation. Their evaluation, treatment and testing was consistent with current guidelines for patients who present with complaints or symptoms that may be related to COVID-19. Moises Disclaimer: Moises Disclaimer: This electronic medical record was generated, in whole or in part, using a voice recognition dictation system. Departure Departure: Impression: Primary Impression: Atypical chest pain Additional Impressions: Atypical pneumonia Back pain Qualified Codes: M54.5 - Low back pain Suspected 2019 novel coronavirus infection Disposition: HOME / SELF CARE / HOMELESS Condition: STABLE Referrals: ANETTE LEZAMA MD (PCP) Patient Instructions: Back Pain, Adult, Slrn-nt-[id number], Chest Pain (Nonspecific), [id number], Pneumonia, Adult, [id number] Additional Instructions: Use [id number] ibuprofen and/or Tylenol for pain or discomfort. Ice area of discomfort 20 minutes on then leave off next 20 minutes. Repeat several times daily for the next few days. You have been tested for or diagnosed with COVID-19. It is an infection caused by a new type of coronavirus. COVID-19 will cause cold-like or mild flu symptoms in most. It can cause more severe symptoms like problems breathing in some. There is no treatment for COVID-19. The body will clear the infection over time. Self-care will help to ease discomfort. Steps to Take: Self-Care Rest as needed. Healthy habits may help you feel better. Steps include: Choose healthy foods including fruits and vegetables. Drink water throughout the day. Get plenty of sleep each night. If you smoke, try to quit. It may ease breathing. Avoid alcohol. Keep Others Healthy The virus can spread to others. Droplets are released every time you sneeze or cough. The droplets can get into the mouth, nose, or eyes of people near you and lead to i nfection. To lower the chances of spreading COVID-19 to others: Stay at home until your doctor has said it is safe to leave. If you tested positive this will mean staying isolated until both of the following are true: At least 7 days have passed since the start of illness. You are free of fever for at least 72 hours without the use of medicine. During this time: - Avoid public areas, events, or transportation. Do not return to work or school until your doctor has said it is safe to do so. - Call ahead if you need to go to a medical center. Let them know you may have COVID-19. It will help them guide you where to go. They may also ask you to wear a facemask when you come to the office. - If you call for emergency medical services, let them know you may have COVID- 19. While at home: - Try to avoid close contact with others. Stay about 6 feet away. - If possible, spend most of your time in a separate room from others. - Use a face mask if you will be in close contact with others such as sharing a room or vehicle. - Have someone wipe down common surfaces in the home. Use household electrical transmission engineer every day on areas like doorknobs, counters, or sinks. - Cough or sneeze into a tissue. Throw the tissue away right after use. If a tissue is not available, cough or sneeze into your elbow. - Wash your hands often. Wash them after sneezing or coughing. Use soap and water and wash for at least 20 seconds. Alcohol based hand casing cleaner can be used if soap and water is not available. - Do not prepare food for others. Avoid sharing personal items like forks, spoons, or toothbrushes. - Avoid close contact with pets while you are sick. There is no evidence of the virus passing to pets. This is a safety step until more is known about this virus. Isolation can be frustrating. Social interaction can help. Keep in touch with friends and family through phone and tech options. You can still interact with others in your home, just keep a safe distance of about 6 feet. Follow-up: Your doctors office will check in with you to see if there are any changes in your health. You may be asked to keep track of symptoms to share with them. They will also let you know when you are clear to be in public again. Problems to Look Out For: Contact your doctor if your recovery is not going as you expect. Get emergency care if you have problems such as: - Trouble breathing - Nonstop chest pain or pressure - Changes in awareness, confusion, or problems waking - Lips or face have bluish color - Worsening of symptoms If you think you have an emergency, call for emergency medical services right away. As taken from [facility] Azithromycin (AZITHROMYCIN TABLET) 250 Mg Tablet 1 PKG PO UD for Pneumonia, #6 TAB Take 2 tablets today and then one tablet every day thereafter for the next 4 days Prov: HAYLEY PURVIS DO 04/14/21 Orphenadrine Citrate (ORPHENADRINE CITRATE) 100 Mg Tablet.er 1 TAB PO BID PRN for MUSCLE PAIN, #14 TAB 0 Refills Prov: HAYLEY PURVIS DO 04/14/21 PERC Rule for PE PERC Rule for PE Response (Comments) Value Age > 50: No 0 HR > 100: No 0 Sa02 on room air <95%: No 0 Unilateral leg swelling: No 0 Hemoptysis: No 0 Recent surgery or trauma: No 0 Prior PE or DVT: No 0 Hormone use: No 0 Total 0 COVID-19 Assessment COVID-19 Patient Risks: Age 65 or older: No Sign of co-morbidity: No Exp to person + for COVID: No Exp to PUI: No Travel from affected area: No Lower respiratory symptoms: Yes Fever: No Other: Yes PPE Use: Full PPE with N95 mask or PAPR: Yes HAYLEY PURVIS DO April 14, 2021 00:33
[2021-04-14 02:00] VITALS: BP 137/76
== END 2021-04-14 02:05 | disposition home or self-care (01) ==
LOC: ER 22:46
DX: J18.9 Pneumonia, unspecified organism (principal); R07.89 Other chest pain; M54.5 Low back pain; F17.210 Nicotine dependence, cigarettes, uncomplicated; Z20.822 Contact with and (suspected) exposure to COVID-19; Z91.013 Allergy to seafood; Z88.5 Allergy status to narcotic agent; Z91.018 Allergy to other foods; Z88.8 Allergy status to other drugs, medicaments and biological substances
CPT/HCPCS: 36415; 71046; 80053; 82553; 83690; 83735; 83880; 84484; 85025; 93005; 96374; 99285; C9803; J1885; U0003

== ENCOUNTER 2021-04-18 20:39 | Emergency (ER) | payer OTHER ==
[~2021-04-18] VITALS: Ht 198.1 cm; Wt 104.0 kg
[~2021-04-18 20:39] MED LIST changes: +AZIT250T6 PO; +ORPH-16 PO
--- NOTE | 2021-04-18 20:52 | PHYS DOC ---
Past History Past Medical History: Arthritis, Bronchitis Additional Past Medical Histor: poor dental health Additional Past Surgical Histo: teeth extraction Smoking: Cigarettes Alcohol Use: None Drug Use: None General Adult HPI: HPI: ".. I got this groin pain. I did lift some heavy stuff two days ago... may pulled something to got a hernia on the Lt. I was just here the other day for Lt flank back pain.. they got a CT and said it was pneumonia.. maybe COVID.. but my test came back normal.. but I am taking Zithromax.. 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 Patient recently diagnosed with basilar pneumonia as a cause of the left flank pain. Patient was seen in the ER on 04/13/2021. Denies Hematuria or previous history of kidney stones, with him or family members. No recent travel or specific ill contacts. Patient's recent Covid test was negative. 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 Patient seen previously on 04/13 was history same as today. Except now he has left groin pain. Patient still has some left flank pain which is reproducible on percussion. Patient denies any penile discharge or worries about STD or risk factors. No history of immunosuppression. Patient does smoke tobacco. Review of Systems: Review of Systems: Constitutional: Denies fever or chills Eyes: Denies change in visual acuity HENT: Denies nasal congestion or sore throat Respiratory: History of recent cough -and diagnosis of pneumonia Cardiovascular: Denies chest pain or edema GI: Denies abdominal pain, nausea, vomiting, bloody stools or diarrhea . Complains of left lower abdomen groin strain : Denies dysuria Musculoskeletal: Denies back pain or joint pain Integument: Denies rash Neurologic: Denies headache, focal weakness or sensory changes Endocrine: Denies polyuria or polydipsia Lymphatic: Denies swollen glands Psychiatric: Denies depression or anxiety Family History: Family History: Noncontributory to presentation Current Medications: Current Meds: See nursing for home meds Allergies: Allergies: Allergies Coded Allergies Type Severity Reaction Last Updated Verified Fish Containing Products Allergy Intermediate 01/03/21 Yes codeine Allergy Intermediate 01/03/21 Yes shellfish derived Allergy Intermediate 01/03/21 Yes wheat Allergy Intermediate Itching 01/03/21 Yes gluten Allergy Mild Itching 01/03/21 Yes Uncoded Allergies Type Severity Reaction Last Updated Verified oreo cookies Allergy Mild Itching 12/05/20 Physical Exam: PE: Constitutional: Well developed, well nourished, mild distress, non-toxic appearance. [] HENT: Normocephalic, atraumatic, bilateral external ears normal, oropharynx moist, no oral exudates, nose normal. Dental caries Eyes: PERRLA, EOMI, conjunctiva normal, no discharge. [] Neck: Normal range of motion, no tenderness, supple, no stridor. [] Cardiovascular:Heart rate regular rhythm, no murmur [] Lungs & Thorax: Bilateral breath sounds equal apex with scattered wheezes, bibasilar crackles auscultation [] Abdomen: Bowel sounds normal, soft, no tenderness, no masses, no pulsatile masses. [] Left flank pain on percussion. Circumcised male. Testicles descended. No penile discharge. He does have some mild pain on lower groin on palpation. No obvious strangulated hernia but some mild broad bulging on inguinal area with strain. Mild rebound left lower quadrant. Patient declined rectal at this time. Skin: Warm, dry, no erythema, no rash. [] Back: No tenderness, no CVA tenderness. [] Extremities: No tenderness, no cyanosis, no clubbing, ROM intact, no edema. [] No psoas sign. Neurologic: Alert and oriented X 3, normal motor function, normal sensory function, no focal deficits noted. [] Psychologic: Affect anxious, judgement normal, mood normal. [] EKG: EKG: [] Radiology/Procedures: Radiology/Procedures: [][address] [address] IMAGING REPORT Signed PATIENT: DONTE HEALY ACCOUNT: [id number] : 1975 LOCATION: ER AGE: 45 SEX: M EXAM STATUS: REG ER ORD. PHYSICIAN: LUIGI UGARTE MD REASON: Lt. flank pain- radiates to Lt groin after lifting 2 days ago PROCEDURE: CT ABDOMEN PELVIS WO CONTRAST Abdominal and Pelvis CT, Without Contrast: History: Reason: Lt. flank pain- radiates to Lt groin after lifting 2 days ago / Spl. Instructions: / History: Comparison: None. Procedure: Axial images are obtained of the abdomen and pelvis, without IV or oral contrast. Oral Contrast: No Findings: Evaluation of solid organs is limited without contrast. The gallbladder is partially collapsed but appears normal. The appendix is normal. The prostate is not significantly enlarged. The colon is collapsed limiting its evaluation. Liver: Normal. Spleen: Normal. Pancreas: Normal. Adrenal Glands: Normal. Kidneys: Normal. There is no free air or free fluid. There is no lymphadenopathy. The urinary bladder appears normal. There is no pericolonic inflammation identified. Impression: No acute findings. End impression PQRS Compliance Statement: One or more of the following individualized dose reduction techniques were utilized for this examination: 1. Automated exposure control 2. Adjustment of the mA and/or kV according to patient size 3. Use of iterative reconstruction technique Electronically signed by: Herbie Ballard III, MD (04/18/2021 9:58 PM) [facility] DICTATED AND SIGNED BY: HERBIE BALLARD III, MD DATE: 04/18/212153 CC: LUIGI UGARTE MD; ANETTE LEZAMA MD ~MTH0 0 Heart Score: C/O Chest Pain: N/A Risk Factors: Risk Factors: DM, Current or recent (<one month) smoker, HTN, HLP, family history of CAD, obesity. Risk Scores: Score 0 - 3: 2.5% MACE over next 6 weeks - Discharge Home Score 4 - 6: 20.3% MACE over next 6 weeks - Admit for Clinical Observation Score 7 - 10: 72.7% MACE over next 6 weeks - Early Invasive Strategies Course & Med Decision Making: Course & Med Decision Making Pertinent Labs and Imaging studies reviewed. (See chart for details) Patient take Tylenol and ibuprofen as needed for discomfort. Follow-up primary care. Follow-up with primary care. Avoid strenuous lifting. If persistent pain consider repeat CT with contrast and surgery consult. Impression: 1. Left groin strain-no obvious incarcerated hernia 2. Recent history of atypical pneumonia 3. Tobacco use 4. Tobacco use [] Dragon Disclaimer: Dragon Disclaimer: This electronic medical record was generated, in whole or in part, using a voice recognition dictation system. Departure Departure: Referrals: ANETTE LEZAMA MD (PCP) Moises Disclaimer This chart was dictated in whole or in part using Voice Recognition software in a busy, high-work load, and often noisy Emergency Department environment. It may contain unintended and wholly unrecognized errors or omissions. Dragon Disclaimer This chart was dictated in whole or in part using Voice Recognition software in a busy, high-work load, and often noisy Emergency Department environment. It may contain unintended and wholly unrecognized errors or omissions. LUIGI UGARTE MD April 18, 2021 20:52
[2021-04-18] MEDS ORDERED: KETOROLAC 30 MG/ML VIAL. IVP ONE (21:15)
[2021-04-18] MEDS: IV RINGERS SOLUTION,LACTATED 1,000 ML IV SCH (21:46)
[2021-04-18] MEDS: KETOROLAC 30 MG/ML VIAL. IVP ONE (21:47)
[2021-04-18] MEDS: ONDANSETRON PF 4 MG/2 ML VIAL. IVP ONE (21:48)
[2021-04-18 21:50] LABS: BASO # 0.1 x10^3/uL (0.0-0.2); BASO % 1 % (0-3); EOS # 0.2 x10^3/uL (0.0-0.7); EOS % 4 % (0-3); HEMATOCRIT 40.7 % (39.0-53.0); LYMPH # 1.8 x10^3/uL (1.0-4.8); LYMPH % 37 % (24-48); MEAN CORPUSCULAR HEMOGLOBIN 26 pg (25-35); MEAN CORPUSCULAR HGB CONC 32 g/dL (31-37); MEAN CORPUSCULAR VOLUME 82 fL (79-100); MONO # 0.4 x10^3/uL (0.0-1.1); MONO % 9 % (0-9); NEUT # 2.4 x10^3uL (1.8-7.7); NEUT % 50 % (31-73); PLATELET COUNT 171 x10^3/uL (140-400); RED BLOOD COUNT 4.95 x10^6/uL (4.30-5.70); RED CELL DISTRIBUTION WIDTH 14.3 % (11.5-14.5); WHITE BLOOD COUNT 4.8 x10^3/uL (4.0-11.0)
[2021-04-18 21:54] LABS: CALCIUM 9.3 mg/dL (8.5-10.1); CREATININE 1.2 mg/dL (0.7-1.3); POTASSIUM 4.2 mmol/L (3.5-5.1)
--- NOTE | 2021-04-18 22:00 | RAD ---
Abdominal and Pelvis CT, Without Contrast: History: Reason: Lt. flank pain- radiates to Lt groin after lifting 2 days ago / Spl. Instructions: / History: Comparison: None. Procedure: Axial images are obtained of the abdomen and pelvis, without IV or oral contrast. Oral Contrast: No Findings: Evaluation of solid organs is limited without contrast. The gallbladder is partially collapsed but appears normal. The appendix is normal. The prostate is no t significantly enlarged. The colon is collapsed limiting its evaluation. Liver: Normal. Spleen: Normal. Pancreas: Normal. Adrenal Glands: Normal. Kidneys: Normal. There is no free air or free fluid. There is no lymphadenopathy. The urinary bladder appears normal. There is no pericolonic inflammation identified. Impression: No acute findings. End impression PQRS Compliance Statement: One or more of the following individualized dose reduction techniques were utilized for this examinat ion: 1. Automated exposure control 2. Adjustment of the mA and/or kV according to patient size 3. Use of iterative reconstruction technique Electronically signed by: Franco Park III, MD (04/18/2021 9:58 PM) [facility]
[2021-04-18 22:01] LABS: ALBUMIN 3.9 g/dL (3.4-5.0); DIRECT BILIRUBIN 0.1 mg/dL (0.0-0.2); TOTAL BILIRUBIN 0.2 mg/dL (0.2-1.0); TOTAL PROTEIN 8.3 g/dL (6.4-8.2)
[2021-04-18 22:52] LABS: BARBITURATES NEG (NEG); BENZODIAZEPINES NEG (NEG); CANNABINOIDS NEG (NEG); COCAINE NEG (NEG); METHADONE NEG (NEG); OPIATES NEG (NEG); PHENCYCLIDINE NEG (NEG)
[2021-04-18 22:55] LABS: AMPHETAMINE/METHAMPHETAMINE NEG (NEG)
[2021-04-18 22:58] LABS: BACTERIA,URINE 0 /HPF (0-FEW); BILIRUBIN,URINE NEG (NEG); CLARITY,URINE CLEAR; COLOR,URINE YELLOW; GLUCOSE,URINE NEG (NEG); NITRITE,URINE NEG (NEG); RBC,URINE OCC /HPF (0-2); SQUAMOUS EPITHELIAL CELL,UR OCC /LPF; UROBILINOGEN,URINE 0.2 mg/dL (0.2 mg/dL); WBC,URINE OCC /HPF (0-4)
[2021-04-18 23:35] VITALS: BP 132/76
--- NOTE | 2021-04-18 23:47 | RAD ---
EXAM: Frontal view of the chest, AP views of the abdomen in upright and supine positions. CLINICAL INDICATION: Reason: Lt. flank pain- radiates to Lt groin after lifting 2 days ago / Spl. Ins tructions: / History: COMPARISON: None. FINDINGS and IMPRESSION: The heart is not enlarged. Calcified mediastinal and hilar lymph nodes are seen. No focal parenchymal airspace opacity. No pleural effusion or pneumothorax. No abnormal small or large bowel dilatation. Moderate colonic stool content. No abnormal soft tissu e mass effect. No suspicious calcifications are seen. No free intraperitoneal gas. Electronically signed by: Alan Gomez MD (04/18/2021 11:44 PM) [facility]
== END 2021-04-18 23:50 | disposition home or self-care (01) ==
LOC: ER 20:39
DX: S39.011A Strain of muscle, fascia and tendon of abdomen, initial encounter (principal); Z87.01 Personal history of pneumonia (recurrent); M19.90 Unspecified osteoarthritis, unspecified site; F17.210 Nicotine dependence, cigarettes, uncomplicated; Z91.013 Allergy to seafood; Z88.5 Allergy status to narcotic agent; Z91.018 Allergy to other foods; Z88.8 Allergy status to other drugs, medicaments and biological substances; X58.XXXA Exposure to other specified factors, initial encounter; Y93.89 Activity, other specified; Y92.89 Other specified places as the place of occurrence of the external cause; Y99.0 Civilian activity done for income or pay
CPT/HCPCS: 36415; 74022; 74176; 80048; 80076; 80307; 81001; 82150; 82550; 83690; 85025; 96361; 96374; 96375; 99285; J1885; J2405; J7120

== ENCOUNTER 2021-04-25 20:16 | Emergency (ER) | payer OTHER ==
[~2021-04-25] VITALS: Ht 198.1 cm; Wt 105.0 kg
[2021-04-25 20:16] VITALS: BP 152/81
--- NOTE | 2021-04-25 21:16 | PHYS DOC ---
Past History Past Medical History: Arthritis, Bronchitis Additional Past Medical Histor: poor dental health Past Surgical History: No Surgical History Additional Past Surgical Histo: teeth extraction Smoking: Cigarettes Alcohol Use: None Drug Use: None Adult General Chief Complaint Chief Complaint: SKIN RASH/ABSCESS HPI HPI Left without being seen Allergies Allergies Allergies Coded Allergies Type Severity Reaction Last Updated Verified Fish Containing Products Allergy Intermediate 01/03/21 Yes codeine Allergy Intermediate 01/03/21 Yes shellfish derived Allergy Intermediate 01/03/21 Yes wheat Allergy Intermediate Itching 01/03/21 Yes gluten Allergy Mild Itching 01/03/21 Yes morphine Allergy Unknown 04/18/21 Yes Uncoded Allergies Type Severity Reaction Last Updated Verified oreo cookies Allergy Mild Itching 12/05/20 EKG EKG [] Radiology/Procedures Radiology/Procedures [] Heart Score C/O Chest Pain: N/A Risk Factors: Risk Factors: DM, Current or recent (<one month) smoker, HTN, HLP, family history of CAD, obesity. Risk Scores: Risk Factors: DM, Current or recent (<one month) smoker, HTN, HLP, family history of CAD, obesity. Course & Med Decision Making Course & Med Decision Making [] Dragon Disclaimer Dragon Disclaimer This electronic medical record was generated, in whole or in part, using a voice recognition dictation system. Departure Departure: Disposition: LEFT AWOL/ELOPED Referrals: ANETTE LEZAMA MD (PCP) CARTER CHRISTENSEN MD Apr 25, 2021 21:16
== END 2021-04-25 21:07 | disposition left against medical advice (07) ==
LOC: ER 20:16
DX: R21 Rash and other nonspecific skin eruption (principal); M19.90 Unspecified osteoarthritis, unspecified site; F17.210 Nicotine dependence, cigarettes, uncomplicated; Z53.21 Procedure and treatment not carried out due to patient leaving prior to being seen by health care provider; Z91.013 Allergy to seafood; Z88.5 Allergy status to narcotic agent; Z91.018 Allergy to other foods

== ENCOUNTER 2021-05-30 18:41 | Emergency (ER) | payer OTHER ==
[~2021-05-30] VITALS: Ht 198.1 cm; Wt 105.0 kg
[2021-05-30 18:41] VITALS: BP 141/79
--- NOTE | 2021-05-30 19:07 | PHYS DOC ---
Past History Past Medical History: Arthritis, Bronchitis Additional Past Medical Histor: poor dental health Past Surgical History: No Surgical History Additional Past Surgical Histo: teeth extraction Smoking: Cigarettes Alcohol Use: None Drug Use: None General Adult HPI: HPI: ".. My girl friend popped this pimple earlier.. and now it is hard and swollen... and red... it seems more tender..." Patient is a 45 year old male [employer] employee who presents with above hx and complaints right mandible edema, pain, swelling. Patient denies any history immunosuppression. No recent travel. No specific ill contacts. Normally healthy. Tetanus is up-to-date. Pt. follows with Dr. Lezama. Review of Systems: Review of Systems: Constitutional: Denies fever or chills Eyes: Denies change in visual acuity HENT: 2 small area of cellulitis right mandible Respiratory: Denies cough or shortness of breath Cardiovascular: Denies chest pain or edema GI: Denies abdominal pain, nausea, vomiting, bloody stools or diarrhea : Denies dysuria Musculoskeletal: Denies back pain or joint pain Integument: Denies rash Neurologic: Denies headache, focal weakness or sensory changes Endocrine: Denies polyuria or polydipsia Lymphatic: Denies swollen glands Psychiatric: Denies depression or anxiety Family History: Family History: Noncontributory Current Medications: Current Meds: See nursing for home meds Allergies: Allergies: Allergies Coded Allergies Type Severity Reaction Last Updated Verified Fish Containing Products Allergy Intermediate 01/03/21 Yes codeine Allergy Intermediate 01/03/21 Yes shellfish derived Allergy Intermediate 01/03/21 Yes wheat Allergy Intermediate Itching 01/03/21 Yes gluten Allergy Mild Itching 01/03/21 Yes morphine Allergy Unknown 04/18/21 Yes Uncoded Allergies Type Severity Reaction Last Updated Verified oreo cookies Allergy Mild Itching 12/05/20 Physical Exam: PE: Constitutional: Moderate acute distress, non-toxic appearance. [] HENT: Normocephalic, atraumatic, bilateral external ears normal, oropharynx moist, no oral exudates, nose normal. Right mandible cellulitis localized. Eyes: PERRLA, EOMI, conjunctiva normal, no discharge. [] Neck: Normal range of motion, no tenderness, supple, no stridor. [] Cardiovascular:Heart rate regular rhythm, no murmur [] Lungs & Thorax: Bilateral breath sounds to apex with scattered wheezes on auscultation [] Abdomen: Bowel sounds normal, soft, no tenderness, no masses, no pulsatile masses. [] Skin: Warm, dry, no erythema, no rash. [] Back: No tenderness, no CVA tenderness. [] Extremities: No tenderness, no cyanosis, no clubbing, ROM intact, no edema. [] Neurologic: Alert and oriented X 3, normal motor function, normal sensory function, no focal deficits noted. [] Psychologic: Affect anxious, judgement normal, mood normal. [] EKG: EKG: [] Radiology/Procedures: Radiology/Procedures: [] Heart Score: C/O Chest Pain: N/A Risk Factors: Risk Factors: DM, Current or recent (<one month) smoker, HTN, HLP, family history of CAD, obesity. Risk Scores: Score 0 - 3: 2.5% MACE over next 6 weeks - Discharge Home Score 4 - 6: 20.3% MACE over next 6 weeks - Admit for Clinical Observation Score 7 - 10: 72.7% MACE over next 6 weeks - Early Invasive Strategies Course & Med Decision Making: Course & Med Decision Making Pertinent Labs and Imaging studies reviewed. (See chart for details) Patient to use warm compresses of salt water or Epson salts 4 times a day to right mandible. After compresses several minutes, then massage with Polysporin. Take Bactrim DS twice a day. Follow-up primary care. Return if any concerns. Encouraged patient work in his efforts to stop smoking Impression: 1. Localized cellulitis right mandible [] Dragon Disclaimer: Moises Disclaimer: This electronic medical record was generated, in whole or in part, using a voice recognition dictation system. Departure Departure: Referrals: ANETTE LEZAMA MD (PCP) Scripts Sulfamethoxazole/Trimethoprim (BACTRIM DS TABLET) 1 Each Tablet 1 TAB PO BID for cellulitis for 7 Days, #14 TAB 0 Refills Prov: LUIGI UGARTE MD 05/30/21 LUIGI UGARTE MD May 30, 2021 19:07
[2021-05-30] MEDS ORDERED: SULF1TAB24 PO (19:09)
[2021-05-30] MEDS ORDERED: SMZ/TMP 800/160MG TABLET. PO ONE ×4 (19:30→19:45)
== END 2021-05-30 19:20 | disposition home or self-care (01) ==
LOC: ER 18:41
DX: L03.211 Cellulitis of face (principal); M19.90 Unspecified osteoarthritis, unspecified site; F17.210 Nicotine dependence, cigarettes, uncomplicated; Z91.013 Allergy to seafood; Z88.5 Allergy status to narcotic agent; Z91.018 Allergy to other foods
CPT/HCPCS: 99283

== ENCOUNTER 2021-06-14 20:04 | Emergency (ER) | payer OTHER ==
[~2021-06-14] VITALS: Ht 198.1 cm; Wt 104.0 kg
[~2021-06-14 20:04] MED LIST changes: +SULF1TAB24 PO
[2021-06-14 20:24] VITALS: BP 134/87
[2021-06-14] MEDS ORDERED: CEPHALEXIN 250 MG CAPSULE PO ONE (21:00)
[2021-06-14] MEDS ORDERED: CEPH500C PO (21:01)
--- NOTE | 2021-06-14 21:01 | PHYS DOC ---
Past History Past Medical History: Arthritis, Bronchitis Additional Past Medical Histor: poor dental health Past Surgical History: No Surgical History Additional Past Surgical Histo: teeth extraction Smoking: Cigarettes Alcohol Use: None Drug Use: None General Adult EDM: Chief Complaint: ABSCESS HPI: HPI: 45-year-old male presents with abscess of the right cheek. The patient states it has been there for about a week. It is getting larger and he is concerned about getting closer to his eye. He does not have any eye involvement or eye symptoms. He denies fever or chills. He had a similar lesion on the side of his face in the past that resolved with antibiotics alone. Review of Systems: Review of Systems: Constitutional: Denies fever or chills Eyes: Denies change in visual acuity HENT: Denies nasal congestion or sore throat Respiratory: Denies cough or shortness of breath Cardiovascular: Denies chest pain or edema GI: Denies abdominal pain, nausea, vomiting, bloody stools or diarrhea : Denies dysuria Musculoskeletal: Denies back pain or joint pain Integument: Abscess right cheek Neurologic: Denies headache, focal weakness or sensory changes Endocrine: Denies polyuria or polydipsia Lymphatic: Denies swollen glands Psychiatric: Denies depression or anxiety Allergies: Allergies: Allergies Coded Allergies Type Severity Reaction Last Updated Verified Fish Containing Products Allergy Intermediate 01/03/21 Yes codeine Allergy Intermediate 01/03/21 Yes shellfish derived Allergy Intermediate 01/03/21 Yes wheat Allergy Intermediate Itching 01/03/21 Yes gluten Allergy Mild Itching 01/03/21 Yes morphine Allergy Unknown 04/18/21 Yes Uncoded Allergies Type Severity Reaction Last Updated Verified oreo cookies Allergy Mild Itching 12/05/20 Physical Exam: PE: Constitutional: Well developed, well nourished, no acute distress, non-toxic appearance. [] HENT: Normocephalic, atraumatic, bilateral external ears normal, oropharynx moist, no oral exudates, nose normal. [] Eyes: PERRLA, EOMI, conjunctiva normal, no discharge. [] Neck: Normal range of motion, no tenderness, supple, no stridor. [] Cardiovascular:Heart rate regular rhythm, no murmur [] Lungs & Thorax: Bilateral breath sounds clear to auscultation [] Abdomen: Bowel sounds normal, soft, no tenderness, no masses, no pulsatile masses. [] Skin: Abscess right cheek, less than 1 cm with small fluctuant area at the peak. [] Back: No tenderness, no CVA tenderness. [] Extremities: No tenderness, no cyanosis, no clubbing, ROM intact, no edema. [] Neurologic: Alert and oriented X 3, normal motor function, normal sensory function, no focal deficits noted. [] Psychologic: Affect normal, judgement normal, mood normal. [] Current Patient Data: Vital Signs: Vital Signs Date Time Temp Pulse Resp B/P (MAP) Pulse Ox O2 Delivery O2 Flow Rate FiO2 06/14/21 20:24 98.3 73 16 134/87 97 Room Air EKG: EKG: [] Radiology/Procedures: Radiology/Procedures: [] Heart Score: C/O Chest Pain: N/A Risk Factors: Risk Factors: DM, Current or recent (<one month) smoker, HTN, HLP, family history of CAD, obesity. Risk Scores: Score 0 - 3: 2.5% MACE over next 6 weeks - Discharge Home Score 4 - 6: 20.3% MACE over next 6 weeks - Admit for Clinical Observation Score 7 - 10: 72.7% MACE over next 6 weeks - Early Invasive Strategies Course & Med Decision Making: Course & Med Decision Making Pertinent Labs and Imaging studies reviewed. (See chart for details) The patient did have an abscess of the face. I performed an I&D. See note below for more details. I will place him on Keflex and give his first dose in the ED. He is stable for discharge at this time. [] Moises Disclaimer: Moises Disclaimer: This electronic medical record was generated, in whole or in part, using a voice recognition dictation system. Incision and Drainage Indication: Abscess right cheek Procedure: Verbal consent was obtained from the patient for incision and drainage of the abscess of his right cheek. The area was cleaned with normal saline. No anesthesia was used. I made a small 2 mm incision with a #11 blade. Purulent material was expressed. No dressing was applied. The patient tolerated the procedure well Complications: None Departure Departure: Impression: Primary Impression: Abscess of face Disposition: HOME / SELF CARE / HOMELESS Condition: IMPROVED Referrals: ANETTE LEZAMA MD (PCP) Patient Instructions: Abscess, Care After Scripts Cephalexin (CEPHALEXIN) 500 Mg Capsule 1 CAP PO TID for abscess for 7 Days, #21 CAP Prov: GARRY AMEZQUITA DO 06/14/21 GARRY AMEZQUITA DO Jun 14, 2021 21:01
== END 2021-06-14 21:14 | disposition home or self-care (01) ==
LOC: ER 20:04
DX: L02.01 Cutaneous abscess of face (principal); M19.90 Unspecified osteoarthritis, unspecified site; F17.210 Nicotine dependence, cigarettes, uncomplicated; Z91.018 Allergy to other foods; Z88.5 Allergy status to narcotic agent; Z91.013 Allergy to seafood
CPT/HCPCS: 10060; 99283

== ENCOUNTER 2021-07-23 19:57 | Emergency (ER) | payer OTHER ==
[~2021-07-23] VITALS: Ht 198.1 cm; Wt 106.2 kg
[~2021-07-23 19:57] MED LIST changes: +CEPH500C PO
[2021-07-23 20:07] VITALS: BP 158/109
[2021-07-23] MEDS ORDERED: IBUP600T16 PO (20:22)
[2021-07-23] MEDS ORDERED: METH4TAB2 PO (20:22)
--- NOTE | 2021-07-23 20:22 | PHYS DOC ---
Past History Past Medical History: Arthritis, Bronchitis Additional Past Medical Histor: poor dental health (HAYLEY SPANN APRN) Past Surgical History: No Surgical History Additional Past Surgical Histo: teeth extraction (HAYLEY SPANN APRN) Smoking: Cigarettes Alcohol Use: None Drug Use: None (HAYLEY SPANN APRN) Adult General Chief Complaint Chief Complaint: UPPER EXTREMITY PAIN HPI HPI Patient is a 46-year-old male presents to the emergency department complaining of right upper extremity pain with repetitive work while at work. Patient reports he wakes up in the mornings with his fourth and fifth finger numb and tingly on the right and sometimes on the left as well. Patient reports symptoms have been going on for approximately 2 to 3 weeks. Patient currently denies pain however reports she does have intermittent pain depending on how many hours he works and what he does. 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 Patient denies any traumatic injury to his upper extremities. Patient denies any other physical complaints or physical concerns. (HAYLEY SPANN APRN) Review of Systems Review of Systems 14 body systems of review of systems have been reviewed. See HPI for pertinent positives and negative responses, otherwise all other systems are negative, nonpertinent or noncontributory. Constitutional: Negative except as outlined in HPI above. Skin: Negative except as outlined in HPI above. Eyes: Negative except as outlined in HPI above. HENT: Negative except as outlined in HPI above. Respiratory: Negative except as outlined in HPI above. Cardiovascular: Negative except as outlined in HPI above. GI: Negative except as outlined in HPI above. : Negative except as outlined in HPI above. Musculoskeletal: Negative except as outlined in HPI above. Integument: Negative except as outlined in HPI above. Neurologic: Negative except as outlined in HPI above. Endocrine: Negative except as outlined in HPI above. Lymphatic: Negative except as outlined in HPI above. Psychiatric: Negative except as outlined in HPI above. (HAYLEY SPANN APRN) Allergies Allergies Allergies Coded Allergies Type Severity Reaction Last Updated Verified Fish Containing Products Allergy Intermediate 01/03/21 Yes codeine Allergy Intermediate 01/03/21 Yes shellfish derived Allergy Intermediate 01/03/21 Yes wheat Allergy Intermediate Itching 01/03/21 Yes gluten Allergy Mild Itching 01/03/21 Yes morphine Allergy Unknown 04/18/21 Yes Uncoded Allergies Type Severity Reaction Last Updated Verified oreo cookies Allergy Mild Itching 12/05/20 (HAYLEY SPANN APRN) Physical Exam Physical Exam Constitutional: Well developed, well nourished, no acute distress, non-toxic appearance. 46-year-old male in no apparent distress. HENT: Normocephalic, atraumatic. Eyes: Conjunctiva normal, no discharge. Neck: Normal range of motion, no stridor. Cardiovascular: No cyanosis appreciated, distal cap refill less than 2 seconds. Lungs & Thorax: Patient is in no respiratory distress, no audible adventitious lung sounds appreciated. Abdomen: Nontender, no abnormalities noted. Skin: Warm, dry, no erythema, no rash. Back: No tenderness, no deformities. Extremities: No tenderness, no cyanosis, no clubbing, ROM intact, no edema. Except for bilateral upper extremities, positive Tinel's test, positive Phalen's test for carpal tunnel syndrome. Neurologic: Alert and oriented X 3, normal motor function, normal sensory function, no focal deficits noted. Psychologic: Affect normal, judgement normal, mood normal. (HAYLEY SPANN APRN) Current Patient Data Vital Signs Vital Signs Date Time Temp Pulse Resp B/P (MAP) Pulse Ox O2 Delivery O2 Flow Rate FiO2 07/23/21 20:07 98.6 66 16 158/109 100 Room Air (HAYLEY SPANN APRN) EKG EKG [] (HAYLEY SPANN APRN) Radiology/Procedures Radiology/Procedures [] (HAYLEY SPANN APRN) Heart Score C/O Chest Pain: No Risk Factors: Risk Factors: DM, Current or recent (<one month) smoker, HTN, HLP, family history of CAD, obesity. Risk Scores: Risk Factors: DM, Current or recent (<one month) smoker, HTN, HLP, family history of CAD, obesity. (HAYLEY SPANN APRN) Course & Med Decision Making Course & Med Decision Making Pertinent Labs and Imaging studies reviewed. (See chart for details) 46-year-old male, vital signs reviewed, presents emergency department complaining of upper extremity numbness, tingling, pains for the past 2 to 3 weeks. Patient's physical examination consistent with carpal tunnel syndrome. Will give p.o. pain medicine in the ED along with steroid, discharged home with Medrol Dosepak, ibuprofen, place Velcro wrist splints in ED today. Recommend follow-up with orthopedic surgeon for ongoing evaluation of carpal tunnel syndrome. Patient is amenable to ED discharge planning. Discussed with the patient all findings and diagnostic testing as well as the need to follow-up with their primary care provider for further evaluation and treatment or return to the ED if any new or worsening symptoms. Strict return precautions were also discussed at length, the patient voiced understanding and agreement with the discharge planning. The patient was nontoxic in appearance, in no apparent distress, and hemodynamically stable at the time of disposition. (HAYLEY SPANN APRN) Course & Med Decision Making Did not see or evaluate patient. Did not discuss patient with [employer]. Agree with [employer] TE[employer]'s work-up and disposition per note. (CARTER CHRISTENSEN MD) Dragon Disclaimer Dragon Disclaimer This electronic medical record was generated, in whole or in part, using a voice recognition dictation system. (HAYLEY SPANN APRN) Departure Departure: Impression: Primary Impression: Carpal tunnel syndrome on both sides Disposition: 01 HOME / SELF CARE / HOMELESS Condition: GOOD Referrals: ANETTE LEZAMA MD (PCP) Patient Instructions: Carpal Tunnel Syndrome Additional Instructions: You were seen today in the emergency department for pains and numbness to your right upper arm. The examination today is concerning for carpal tunnel syndrome. I have attached information to this document please review. Please wear the wrist splints as discussed. Follow-up with your primary care physician soon as Dr. Lezama may recommend treatment in her office or follow-up with an orthopedic surgeon. Please take medications as prescribed. Please return to the emergency department for worsening symptoms or other concerns. Thank you for visiting our Emergency Department. It was a pleasure taking care of you today in the emergency department and we appreciate you trusting us with your care. If any additional problems come up don't hesitate to return to visit us. Please follow up with your primary care provider so they can plan additional care if needed and know about the problem that you had. If symptoms worsen come back to the Emergency Department. Any concerning symptoms that start such as chest pain, shortness of air, weakness or numbness on one side of the body, running high fevers or any other concerning symptoms return to the ER. Scripts Methylprednisolone (MEDROL) 4 Mg Tab.ds.pk 1 PKG PO UD for nerve pains, #1 PKG 0 Refills Prov: HAYLEY SPANN APRN 07/23/21 Ibuprofen (IBUPROFEN) 600 Mg Tablet 600 MG PO Q4-6HRS PRN for PAIN, #30 TAB 0 Refills Prov: HAYLEY SPANN APRN 07/23/21 HAYLEY SPANN APRN Jul 23, 2021 20:22 CARTER CHRISTENSEN MD Jul 23, 2021 20:26
[2021-07-23] MEDS ORDERED: HYDROcodone/APAP 10/325 1 TAB TABLET PO ONE (20:30)
[2021-07-23] MEDS ORDERED: IBUPROFEN 600 MG TABLET. PO ONE (20:30)
[2021-07-23] MEDS ORDERED: methylPREDNISolone ACETATE 80 MG/ML VIAL. IM ONE (20:30)
== END 2021-07-23 20:46 | disposition home or self-care (01) ==
LOC: ER 19:57
DX: G56.03 Carpal tunnel syndrome, bilateral upper limbs (principal); M19.90 Unspecified osteoarthritis, unspecified site; F17.210 Nicotine dependence, cigarettes, uncomplicated; Z91.013 Allergy to seafood; Z88.5 Allergy status to narcotic agent; Z88.8 Allergy status to other drugs, medicaments and biological substances
CPT/HCPCS: 29125; 96372; 99283; J1040

== ENCOUNTER 2021-08-01 17:35 | Emergency (ER) | payer OTHER ==
[~2021-08-01] VITALS: Ht 198.1 cm; Wt 106.2 kg
[~2021-08-01 17:35] MED LIST changes: +METH4TAB2 PO
[2021-08-01 18:20] VITALS: BP 128/82
--- NOTE | 2021-08-01 18:36 | PHYS DOC ---
Past History Past Medical History: Arthritis, Bronchitis Additional Past Medical Histor: poor dental health Past Surgical History: No Surgical History Additional Past Surgical Histo: teeth extraction Smoking: Cigarettes Alcohol Use: None Drug Use: None General Adult EDM: Chief Complaint: RIB PAIN HPI: HPI: ".. I ve been moving stuff.. .. I probably pulled something.. in my right chest walll.." Patient is a 46 year old male who presents with above hx and complaints of Rib pain. Has point tenderness proximal 1 cm area anterior axillary line at T7. Pain is reproduced with palpation. Pain is reproduced with deep breaths. Patient pain is reproduced with movement. No history of dyspnea. No history of cardiac disease disorders. Patient does smoke. No recent travel. No specific ill contacts. Normally healthy. Review of Systems: Review of Systems: Constitutional: Denies fever or chills Eyes: Denies change in visual acuity HENT: Denies nasal congestion or sore throat Respiratory: Denies cough or shortness of breath Cardiovascular: Denies chest pain or edema GI: Denies abdominal pain, nausea, vomiting, bloody stools or diarrhea : Denies dysuria Musculoskeletal: Denies back pain or joint pain Integument: Denies rash Neurologic: Denies headache, focal weakness or sensory changes Endocrine: Denies polyuria or polydipsia Lymphatic: Denies swollen glands Psychiatric: Denies depression or anxiety Family History: Family History: Noncontributory to presentation Current Medications: Current Meds: See nursing for home meds Allergies: Allergies: Allergies Coded Allergies Type Severity Reaction Last Updated Verified Fish Containing Products Allergy Intermediate 01/03/21 Yes codeine Allergy Intermediate 01/03/21 Yes shellfish derived Allergy Intermediate 01/03/21 Yes wheat Allergy Intermediate Itching 01/03/21 Yes gluten Allergy Mild Itching 01/03/21 Yes morphine Allergy Unknown 04/18/21 Yes Uncoded Allergies Type Severity Reaction Last Updated Verified oreo cookies Allergy Mild Itching 12/05/20 Physical Exam: PE: Constitutional: no acute distress, non-toxic appearance. [] HENT: Normocephalic, atraumatic, bilateral external ears normal, oropharynx moist, no oral exudates, nose normal. Dental caries Eyes: PERRLA, EOMI, conjunctiva normal, no discharge. [] Neck: Normal range of motion, no tenderness, supple, no stridor. [] Cardiovascular:Heart rate regular rhythm, no murmur [] Lungs & Thorax: Bilateral breath sounds equal apex with few scattered wheezes on auscultation [.] point chest wall tenderness as per HPI Abdomen: Bowel sounds normal, soft, no tenderness, no masses, no pulsatile masses. [] Skin: Warm, dry, no erythema, no rash. [] Back: No tenderness, no CVA tenderness. [] Extremities: No tenderness, no cyanosis, no clubbing, ROM intact, no edema. [] No cording noted. Neurologic: Alert and oriented X 3, normal motor function, normal sensory function, no focal deficits noted. [] Psychologic: Affect normal, judgement normal, mood normal. [] EKG: EKG: [] Radiology/Procedures: Radiology/Procedures: [][address] [address] IMAGING REPORT Signed PATIENT: DONTE HEALY ACCOUNT: [id number] : 1975 LOCATION: ER AGE: 46 SEX: M EXAM STATUS: REG ER ORD. PHYSICIAN: LUIGI UGARTE MD REASON: chest pain, TIGHTNESS X 1 MONTH PROCEDURE: CHEST PA & LATERAL PA lateral chest x-rays HISTORY: Chest pain. FINDINGS: Comparison is made to chest x-ray April 14, 2021 and priors FINDINGS: Borderline cardiomegaly stable. Calcified granulomas in the chest again demonstrated. No pneumothorax, pulmonary opacities or pleural effusions. Thin linear scarring left upper lobe stable. Bones are unremarkable. Findings are stable back to 2010. IMPRESSION: No acute process. Stable exam. Electronically signed by: Dajuan Cuellar MD (08/01/2021 6:58 PM) [facility] [place] DICTATED AND SIGNED BY: DAJUAN CUELLAR MD DATE: 08/01/211854 CC: LUIGI UGARTE MD; ANETTE LEZAMA MD ~MTH0 0 Heart Score: C/O Chest Pain: Yes HEART Score for Chest Pain: HEART Score for Chest Pain Response (Comments) Value History Slighlty/Non-Suspicious 0 Total 0 Risk Factors: Risk Factors: DM, Current or recent (<one month) smoker, HTN, HLP, family history of CAD, obesity. Risk Scores: Score 0 - 3: 2.5% MACE over next 6 weeks - Discharge Home Score 4 - 6: 20.3% MACE over next 6 weeks - Admit for Clinical Observation Score 7 - 10: 72.7% MACE over next 6 weeks - Early Invasive Strategies Course & Med Decision Making: Course & Med Decision Making Pertinent Labs and Imaging studies reviewed. (See chart for details) Patient take Tylenol or ibuprofen for pain. Patient declined to stay for EKG. Pt. declined labs. Patient follow-up primary care. Patient return if any concerns. Impression: 1. Chest wall Pain [] Dragon Disclaimer: Dragon Disclaimer: This electronic medical record was generated, in whole or in part, using a voice recognition dictation system. Departure Departure: Referrals: ANETTE LEZAMA MD (PCP) Dragon Disclaimer This chart was dictated in whole or in part using Voice Recognition software in a busy, high-work load, and often noisy Emergency Department environment. It may contain unintended and wholly unrecognized errors or omissions. Dragon Disclaimer This chart was dictated in whole or in part using Voice Recognition software in a busy, high-work load, and often noisy Emergency Department environment. It may contain unintended and wholly unrecognized errors or omissions. Dragon Disclaimer This chart was dictated in whole or in part using Voice Recognition software in a busy, high-work load, and often noisy Emergency Department environment. It may contain unintended and wholly unrecognized errors or omissions. LUIGI UGARTE MD Aug 01, 2021 18:36
--- NOTE | 2021-08-01 19:00 | RAD ---
PA lateral chest x-rays HISTORY: Chest pain. FINDINGS: Comparison is made to chest x-ray April 14, 2021 and priors FINDINGS: Borderline cardiomegaly stable. Calcified granulomas in the chest again demonstrated. No pn eumothorax, pulmonary opacities or pleural effusions. Thin linear scarring left upper lobe stable. Mello jill are unremarkable. Findings are stable back to 2010. IMPRESSION: No acute process. Stable exam. Electronically signed by: Kyler Cuellar MD (08/01/2021 6:58 PM) [facility]
[2021-08-01] MEDS ORDERED: IBUPROFEN 600 MG TABLET. PO ONE (21:00)
== END 2021-08-01 20:50 | disposition home or self-care (01) ==
LOC: ER 17:35
DX: R07.81 Pleurodynia (principal); M19.90 Unspecified osteoarthritis, unspecified site; F17.210 Nicotine dependence, cigarettes, uncomplicated; Z91.013 Allergy to seafood; Z88.5 Allergy status to narcotic agent; Z91.018 Allergy to other foods; Z88.8 Allergy status to other drugs, medicaments and biological substances
CPT/HCPCS: 71046; 99283

== ENCOUNTER 2021-10-05 19:56 | Emergency (ER) | payer OTHER ==
[~2021-10-05] VITALS: Ht 198.1 cm; Wt 106.2 kg
[~2021-10-05 19:56] MED LIST changes: +CLIN-95 PO; -CLIN300C9 PO; -CYCL-331 PO; +CYCL10TA19 PO
[2021-10-05 20:07] VITALS: BP 140/87
[2021-10-05] MEDS ORDERED: KETOROLAC 60 MG/2 ML VIAL. IM ONE (21:00)
--- NOTE | 2021-10-05 21:05 | PHYS DOC ---
Past History Past Medical History: Arthritis, Bronchitis Additional Past Medical Histor: poor dental health, carpal tunnel syndrome (ADDI CASTRO) Past Surgical History: Other Additional Past Surgical Histo: teeth extraction (ADDI CASTRO) Smoking: Cigarettes Alcohol Use: None Drug Use: None (ADDI CASTRO) General Adult EDM: Chief Complaint: UPPER EXTREMITY PAIN HPI: HPI: Patient is a 46 year old male who presents with right upper extremity pain. Patient states that on his last visit, he was diagnosed with carpal tunnel syndrome. He was given a wrist brace, which he states he wears at work and while he sleeps. His pain continues to awaken him from his sleep. He reports paresthesias in his elbow down to his medial fingertips. Patient reports the pain is worse when he lifts heavy objects. He denies any injury or trauma. Patient has no other complaints at this time (ADDI CASTRO) Review of Systems: Review of Systems: ROS negative except as mentioned in HPI. (ADDI CASTRO) Allergies: Allergies: Allergies Coded Allergies Type Severity Reaction Last Updated Verified Fish Containing Products Allergy Intermediate 01/03/21 Yes codeine Allergy Intermediate 01/03/21 Yes shellfish derived Allergy Intermediate 01/03/21 Yes wheat Allergy Intermediate Itching 01/03/21 Yes gluten Allergy Mild Itching 01/03/21 Yes morphine Allergy Unknown 04/18/21 Yes Uncoded Allergies Type Severity Reaction Last Updated Verified oreo cookies Allergy Mild Itching 12/05/20 (ADDI CASTRO) Physical Exam: PE: Constitutional: Appears older than stated age, no acute distress, non-toxic appearance. Cardiovascular: Heart rate regular rhythm, no murmur. Lungs & Thorax: Bilateral breath sounds clear to auscultation. Skin: Warm, dry, no erythema, no rash. Extremities: No tenderness, no cyanosis, no clubbing, ROM intact, no edema. Neurologic: Alert and oriented x4, motor function grossly intact, sensory function grossly intact, no focal deficits noted. Phalen test positive with pain and paresthesias in the right elbow. (ADDI CASTRO) Current Patient Data: Vital Signs: Vital Signs Date Time Temp Pulse Resp B/P (MAP) Pulse Ox O2 Delivery O2 Flow Rate FiO2 10/05/21 20:07 97.4 92 18 140/87 (104) 99 Room Air (ADDI CASTRO) Heart Score: C/O Chest Pain: No (ADDI CASTRO) Course & Med Decision Making: Course & Med Decision Making Pertinent Labs and Imaging studies reviewed. (See chart for details) Patient's pain will be treated with ketorolac IM here in the department. Discussed with the patient that further evaluation, management and treatment will need to be performed by orthopedics. He needs further diagnostic evaluation for median versus ulnar nerve pathology. Patient advised to take naproxen every 8 hours upon discharge. Patient understands and is agreeable to discharge plan. (ADDI CASTRO) Dragon Disclaimer: Dragon Disclaimer: This electronic medical record was generated, in whole or in part, using a voice recognition dictation system. (ADDI CASTRO) Departure Departure: Impression: Primary Impression: Chronic pain of right elbow Disposition: HOME / SELF CARE / HOMELESS Condition: STABLE Referrals: ANETTE LEZAMA MD (PCP) ZACKARY MANDEL Jr. DO Additional Instructions: As discussed, please take zgpq-nen-[id number] naproxen (Aleve) every 8 hours for pain and inflammation control. You should follow-up with orthopedic specialists for further evaluation, management and treatment of your ongoing symptoms. They can do further testing to determine the origin of your pain, whether it is median nerve (carpal tunnel syndrome, or ulnar nerve that is causing your symptoms. Continue wearing the brace as directed. Return to the emergency department if your pain becomes uncontrollable at home. Attending Signature Attending Signature I have participated in the care of this patient and I have reviewed and agree with all pertinent clinical information above including history, exam, and recommendations. (LUIGI UGARTE MD) ADDI CASTRO Oct 05, 2021 21:05 LUIGI UGARTE MD Oct 10, 2021 19:28
== END 2021-10-05 21:11 | disposition home or self-care (01) ==
LOC: ER 19:56
DX: G89.29 Other chronic pain (principal); M25.521 Pain in right elbow; M79.601 Pain in right arm; M19.90 Unspecified osteoarthritis, unspecified site; F17.210 Nicotine dependence, cigarettes, uncomplicated; Z91.013 Allergy to seafood; Z88.5 Allergy status to narcotic agent; Z91.018 Allergy to other foods; Z88.8 Allergy status to other drugs, medicaments and biological substances
CPT/HCPCS: 96372; 99283; J1885

== ENCOUNTER 2021-10-23 11:02 | Emergency (ER) | payer OTHER ==
[~2021-10-23] VITALS: Ht 198.1 cm; Wt 108.6 kg
[2021-10-23 11:02] VITALS: BP 121/73
--- NOTE | 2021-10-23 11:33 | PHYS DOC ---
Past History Past Medical History: Arthritis, Bronchitis Additional Past Medical Histor: poor dental health, carpal tunnel syndrome Past Surgical History: Other Additional Past Surgical Histo: teeth extraction Smoking: Cigarettes Alcohol Use: None Drug Use: None Adult General Chief Complaint Chief Complaint: ANKLE PROBLEM HPI HPI Patient is a 46-year-old male presenting for left ankle injury. States he walked from [facility] to our facility as he had no transportation. Reports when walking overnight, he was walking in the middle of the median along [place] when he suffered an inversion type ankle sprain to his left ankle. He was able to walk but admits he has a limp and left lateral ankle pain. No changes in motor or sensory neuro function. States he has some swelling on his lateral portion of his leg which prompted him to come in for evaluation. States he has already taken Tylenol and ibuprofen and is requesting pain control today Review of Systems Review of Systems Fourteen body systems of review of systems have been reviewed. See HPI for pertinent positives and negative responses, other gray all other systems are negative, non-pertinent or non-contributory Allergies Allergies Allergies Coded Allergies Type Severity Reaction Last Updated Verified Fish Containing Products Allergy Intermediate 01/03/21 Yes codeine Allergy Intermediate 01/03/21 Yes shellfish derived Allergy Intermediate 01/03/21 Yes wheat Allergy Intermediate Itching 01/03/21 Yes gluten Allergy Mild Itching 01/03/21 Yes morphine Allergy Unknown 04/18/21 Yes Uncoded Allergies Type Severity Reaction Last Updated Verified oreo cookies Allergy Mild Itching 12/05/20 Physical Exam Physical Exam Constitutional: Well developed, well nourished, no acute distress, non-toxic [place]. HENT: Normocephalic, atraumatic, bilateral external ears normal, oropharynx moist, no oral exudates, nose normal. Eyes: PERRLA, EOMI, conjunctiva normal, no discharge. Neck: Normal range of motion, no tenderness, supple, no stridor. Cardiovascular: Heart rate regular per monitor Lungs & Thorax: No respiratory distress or accessory muscle use, bilateral chest rise Abdomen: Abdomen soft, non-tender, bowel sounds present in all quadrants, no guarding or rebound, nonacute abdomen. Skin: Warm, dry, no erythema, no rash. Back: No tenderness, no CVA tenderness. Extremities: Formal examinations of patient's left knee, sanchez, soft compartments and foot unremarkable. Patient has pain over posterior edge of left lateral malleolus only. Patient ambulatory into the ER. No other obvious palpable and/or visual abnormalities. No cyanosis, no clubbing, ROM intact, no edema. Neurologic: Alert and oriented X 3, grossly normal motor & sensory function, no focal deficits noted. Psychologic: Affect normal, judgement normal, mood normal. Current Patient Data Vital Signs Vital Signs Date Time Temp Pulse Resp B/P (MAP) Pulse Ox O2 Delivery O2 Flow Rate FiO2 10/23/21 11:02 90 18 121/73 (89) 99 Room Air 10/23/21 11:02 97.4 EKG EKG [] Radiology/Procedures Radiology/Procedures EXAM: 3 views of the left ankle DATE: 10/23/2021 11:33 AM INDICATION: inversion ankle injury left mal pain COMPARISON: No Prior FINDINGS: No acute fracture or dislocation. Ankle mortise is congruent. Talar dome is intact. Joint spaces are preserved without significant degenerative/proliferative change. No significant soft tissue swelling. IMPRESSION: No acute fracture or dislocation. Electronically signed by: Alan Gomez MD (10/23/2021 11:50 AM) [id number] Heart Score C/O Chest Pain: No Risk Factors: Risk Factors: DM, Current or recent (<one month) smoker, HTN, HLP, family history of CAD, obesity. Risk Scores: Risk Factors: DM, Current or recent (<one month) smoker, HTN, HLP, family history of CAD, obesity. Course & Med Decision Making Course & Med Decision Making ABCs unremarkable Vitals, HPI and physical exam nonconcerning for any emergent or surgical issues Positive [place] ankle rule of left foot, radiograph obtained negative for any bony abnormality Discussed need for continued supportive care practices and close PCP follow-up Dragon Disclaimer Dragon Disclaimer This electronic medical record was generated, in whole or in part, using a voice recognition dictation system. Departure Departure: Impression: Primary Impression: Ankle pain, left Disposition: 01 HOME / SELF CARE / HOMELESS Condition: STABLE Referrals: ANETTE LEZAMA MD (PCP) Additional Instructions: You have been evaluated in the Emergency Department today for ankle pain. The x- ray of your ankle did not show any acute bony abnormalities. You can alternate Tylenol and/or Motrin every 4-6 hours to help control your pain. Please also rest, ice, and elevate your ankle to control your pain. Please follow up with your primary care physician as needed. If you do not have a primary doctor, you can call your insurance company to find one. If you do not have insurance, you can go to the finance/registration department for more assistance. Return to the Emergency Department if you experience worsening pain, numbness/tingling, change of color in your toes, or any other concerning symptoms. TEJ LAFLEUR DO Oct 23, 2021 11:33
--- NOTE | 2021-10-23 11:52 | RAD ---
EXAM: 3 views of the left ankle DATE: 10/23/2021 11:33 AM INDICATION: inversion ankle injury left mal pain COMPARISON: No Prior FINDINGS: No acute fracture or dislocation. Ankle mortise is congruent. Talar dome is intact. Joint spaces are preserved without significant degenerative/proliferative change. No significant soft tissue swelling. IMPRESSION: No acute fracture or dislocation. Electronically signed by: Alan Gomez MD (10/23/2021 11:50 AM) [id number]
== END 2021-10-23 12:10 | disposition home or self-care (01) ==
LOC: ER 11:02
DX: M25.572 Pain in left ankle and joints of left foot (principal); R22.42 Localized swelling, mass and lump, left lower limb; M19.90 Unspecified osteoarthritis, unspecified site; F17.210 Nicotine dependence, cigarettes, uncomplicated; Z91.013 Allergy to seafood; Z88.5 Allergy status to narcotic agent; Z88.8 Allergy status to other drugs, medicaments and biological substances
CPT/HCPCS: 73610; 99283

== ENCOUNTER 2021-10-24 18:57 | Emergency (ER) | payer OTHER ==
[~2021-10-24] VITALS: Ht 198.1 cm; Wt 108.6 kg
[2021-10-24 18:57] VITALS: BP 136/70
[2021-10-24] MEDS ORDERED: START PACK - traMADol 1 STARTPACK TABLET PO ONE ×2 (19:27→19:45)
--- NOTE | 2021-10-24 19:33 | PHYS DOC ---
Past History Past Medical History: Arthritis, Bronchitis Additional Past Medical Histor: poor dental health, carpal tunnel syndrome (BRUCE ARTHUR APRN) Past Surgical History: Other Additional Past Surgical Histo: teeth extraction (BRUCE ARTHUR APRN) Smoking: Cigarettes Alcohol Use: None Drug Use: None (BRUCE ARTHUR APRN) General Adult EDM: Chief Complaint: PAIN CONTROL HPI: HPI: Patient is a 46-year-old male that presents today with left foot pain. Patient is well-known to the emergency department and states he was seen in the emergency department yesterday for the same concern, states he had x-rays done and was told to rest ice and elevate the foot take fzlw-eeo-qpwofzu ibuprofen and follow-up with his primary care. Patient states over the last 24 hours he has placed ice and heat on the foot and is also taken yzrd-yws-whwvipi ibuprofen for pain and he states that is not helping. Patient is here for something stronger than ibuprofen for pain (BRUCE ARTHUR APRN) Review of Systems: Review of Systems: Constitutional: Denies fever or chills Eyes: Denies change in visual acuity HENT: Denies nasal congestion or sore throat Respiratory: Denies cough or shortness of breath Cardiovascular: Denies chest pain or edema GI: Denies abdominal pain, nausea, vomiting, bloody stools or diarrhea : Denies dysuria Musculoskeletal: Left foot pain ankle pain Integument: Denies rash Neurologic: Denies headache, focal weakness or sensory changes Endocrine: Denies polyuria or polydipsia Lymphatic: Denies swollen glands Psychiatric: Denies depression or anxiety (BRUCE ARTHUR APRN) Allergies: Allergies: Allergies Coded Allergies Type Severity Reaction Last Updated Verified Fish Containing Products Allergy Intermediate 01/03/21 Yes codeine Allergy Intermediate 01/03/21 Yes shellfish derived Allergy Intermediate 01/03/21 Yes wheat Allergy Intermediate Itching 01/03/21 Yes gluten Allergy Mild Itching 01/03/21 Yes morphine Allergy Unknown 04/18/21 Yes Uncoded Allergies Type Severity Reaction Last Updated Verified oreo cookies Allergy Mild Itching 12/05/20 (BRUCE ARTHUR APRN) Physical Exam: PE: Constitutional: Well developed, well nourished, no acute distress, non-toxic appearance. [] HENT: Normocephalic, atraumatic, bilateral external ears normal, oropharynx moist, no oral exudates, nose normal. [] Eyes: PERRLA, EOMI, conjunctiva normal, no discharge. [] Neck: Normal range of motion, no tenderness, supple, no stridor. [] Cardiovascular:Heart rate regular rhythm, no murmur [] Lungs & Thorax: Bilateral breath sounds clear to auscultation [] Abdomen: Bowel sounds normal, soft, no tenderness, no masses, no pulsatile masses. [] Skin: Warm, dry, no erythema, no rash. [] Back: No tenderness, no CVA tenderness. [] Extremities: Left foot and ankle tender to palpation, minimal swelling noted no lacerations, abrasions, contusions, or ecchymosis noted, dorsalis pedis pulse 2+, neuro intact distal to the pain. Neurologic: Alert and oriented X 3, normal motor function, normal sensory function, no focal deficits noted. [] Psychologic: Affect normal, judgement normal, mood normal. [] (BRUCE ARTHUR APRN) Current Patient Data: Vital Signs: Vital Signs Date Time Temp Pulse Resp B/P (MAP) Pulse Ox O2 Delivery O2 Flow Rate FiO2 10/24/21 18:57 90 19 136/70 (92) 99 Room Air (BRUCE ARTHUR APRN) EKG: EKG: [] (BRUCE ARTHUR APRN) Radiology/Procedures: Radiology/Procedures: [] (BRUCE ARTHUR APRN) Heart Score: C/O Chest Pain: N/A Risk Factors: Risk Factors: DM, Current or recent (<one month) smoker, HTN, HLP, family history of CAD, obesity. Risk Scores: Score 0 - 3: 2.5% MACE over next 6 weeks - Discharge Home Score 4 - 6: 20.3% MACE over next 6 weeks - Admit for Clinical Observation Score 7 - 10: 72.7% MACE over next 6 weeks - Early Invasive Strategies (BRUCE ARTHUR APRN) Course & Med Decision Making: Course & Med Decision Making Pertinent Labs and Imaging studies reviewed. (See chart for details) Reviewed patient's records from October 23, 2021, noted the patient had a radiological films done and they were negative for any acute process, patient will be given some Ultram here in the emergency department and will be instructed to follow-up with his primary care physician. Patient will also be given a postop shoe and Ang wrap to help with compression. (BRUCE ARTHUR APRN) Course & Med Decision Making Did not see or evaluate patient. Did not discuss patient with [employer] FOR[employer]. Agree with [employer] FOR[facility]'s work-up and disposition per note. (CARTER CHRISTENSEN MD) Dragon Disclaimer: Dragon Disclaimer: This electronic medical record was generated, in whole or in part, using a voice recognition dictation system. (BRUCE ARTHUR APRN) Departure Departure: Impression: Primary Impression: Foot pain, left Disposition: HOME / SELF CARE / HOMELESS Condition: STABLE Referrals: ANETTE LEZAMA MD (PCP) Patient Instructions: Foot Sprain Additional Instructions: Rest left foot Ice 20 minutes on 3-4 times daily Use Ang wrap and postop shoe to help with pain and comfort Elevate while sitting or lying above the level of the heart to help with swelling and pain Ultram 1 tablet every 6 hours as needed for pain Haan-jua-swadyjf ibuprofen as needed for pain as labeled directed Follow-up with your primary care physician Dr. Lezama in the next 3 to 5 days BRUCE ARTHUR APRN Oct 24, 2021 19:33 CARTER CHRISTENSEN MD Oct 24, 2021 23:39
[2021-10-24] MEDS ORDERED: KETOROLAC 60 MG/2 ML VIAL. IM ONE (19:45)
== END 2021-10-24 19:56 | disposition home or self-care (01) ==
LOC: ER 18:57
DX: M79.672 Pain in left foot (principal); R22.42 Localized swelling, mass and lump, left lower limb; M19.90 Unspecified osteoarthritis, unspecified site; F17.210 Nicotine dependence, cigarettes, uncomplicated; Z91.013 Allergy to seafood; Z88.5 Allergy status to narcotic agent; Z91.018 Allergy to other foods
CPT/HCPCS: 96372; 99283; J1885

== ENCOUNTER 2021-11-13 23:41 | Emergency (ER) | payer OTHER ==
[~2021-11-13] VITALS: Ht 198.1 cm; Wt 109.7 kg
[2021-11-14 00:04] VITALS: BP 138/60
--- NOTE | 2021-11-14 00:05 | PHYS DOC ---
Past History Past Medical History: Arthritis, Bronchitis Additional Past Medical Histor: poor dental health, carpal tunnel syndrome Past Surgical History: Other Additional Past Surgical Histo: teeth extraction Smoking: Cigarettes Alcohol Use: None Drug Use: None General Adult EDM: Chief Complaint: FINGER INJURY HPI: HPI: " I got a wood splinter caught in my finger... "" I was playing with my dog.. Yashira.. " It was on Monday.. I got this thorn in there very deep.. it. would not come out... " Patient is a 46 year old male who presents with above hx and complaints foreign embedded in his right index finger pad on this past Monday the . Patient complaining of his foot crease swelling and drainage from the puncture site. Patient works at [employer]. And the pain in the finger is affecting his working. Patient is right-hand dominant. Distal neurovascular intact. Does have obvious infected inflamed right index finger. Patient denies any history immunosuppression. No recent travel. No specific ill contacts. Tetanus is up-to-date. Review of Systems: Review of Systems: Constitutional: Denies fever or chills Eyes: Denies change in visual acuity HENT: Denies nasal congestion or sore throat Respiratory: Denies cough or shortness of breath Cardiovascular: Denies chest pain or edema GI: Denies abdominal pain, nausea, vomiting, bloody stools or diarrhea : Denies dysuria Musculoskeletal: Denies back pain or joint pain Integument: Foreign body in right index finger Neurologic: Denies headache, focal weakness or sensory changes Endocrine: Denies polyuria or polydipsia Lymphatic: Denies swollen glands Psychiatric: Denies depression or anxiety Family History: Family History: Noncontributory to presentation Current Medications: Current Meds: See nursing for home meds Allergies: Allergies: Allergies Coded Allergies Type Severity Reaction Last Updated Verified Fish Containing Products Allergy Intermediate 01/03/21 Yes codeine Allergy Intermediate 01/03/21 Yes shellfish derived Allergy Intermediate 01/03/21 Yes wheat Allergy Intermediate Itching 01/03/21 Yes gluten Allergy Mild Itching 01/03/21 Yes morphine Allergy Unknown 04/18/21 Yes Uncoded Allergies Type Severity Reaction Last Updated Verified oreo cookies Allergy Mild Itching 12/05/20 Physical Exam: PE: Constitutional: Well developed, well nourished, no acute distress, non-toxic appearance. [] HENT: Normocephalic, atraumatic, bilateral external ears normal, oropharynx moist, no oral exudates, nose normal. [] Eyes: PERRLA, EOMI, conjunctiva normal, no discharge. [] Neck: Normal range of motion, no tenderness, supple, no stridor. [] Cardiovascular:Heart rate regular rhythm, no murmur [] Lungs & Thorax: Bilateral breath sounds to apex with scattered wheezes auscultation [] Abdomen: Bowel sounds normal, soft, no tenderness, no masses, no pulsatile masses. [] Skin: Warm, dry, no erythema, no rash. [] Right index fingers cellulitis and foreign body Back: No tenderness, no CVA tenderness. [] Extremities: No tenderness, no cyanosis, no clubbing, ROM intact, no edema. [] Neurologic: Alert and oriented X 3, normal motor function, normal sensory function, no focal deficits noted. [] Psychologic: Affect anxious, judgement normal, mood normal. [] EKG: EKG: [] Radiology/Procedures: Radiology/Procedures: [] Heart Score: C/O Chest Pain: N/A Risk Factors: Risk Factors: DM, Current or recent (<one month) smoker, HTN, HLP, family history of CAD, obesity. Risk Scores: Score 0 - 3: 2.5% MACE over next 6 weeks - Discharge Home Score 4 - 6: 20.3% MACE over next 6 weeks - Admit for Clinical Observation Score 7 - 10: 72.7% MACE over next 6 weeks - Early Invasive Strategies Course & Med Decision Making: Course & Med Decision Making Pertinent Labs and Imaging studies reviewed. (See chart for details) Procedure note-embedded foreign body removal- Right index finger soaked in Betadine. Digital block with 1% lidocaine. Using an 18-gauge needle was able to make a channel for the removal of a 1 cm thorn embedded into the subcu area of his index finger. Small amount of pus drained. Irrigated wound extensively. Antibiotic and finger dressing applied post procedure. Patient take Bactrim DS twice a day for next 5 days. Patient to keep finger clean and dry. Initial dressing soiled must come off. Soak finger 4 times a day and very warm salt water or Epson salts and then apply antibiotic ointment and cover with Band-Aid. Return if any concerns. Impression: 1. Embedded foreign body- Thorn 2. Cellulitis/ Abscess [] Dragon Disclaimer: Dragon Disclaimer: This electronic medical record was generated, in whole or in part, using a voice recognition dictation system. Departure Departure: Referrals: ANETTE LEZAMA MD (PCP) Scripts Sulfamethoxazole/Trimethoprim (BACTRIM DS TABLET) 1 Each Tablet 1 TAB PO BID for Cellulitis for 7 Days, #14 TAB 0 Refills Prov: LUIGI UGARTE MD 11/14/21 Moises Disclaimer This chart was dictated in whole or in part using Voice Recognition software in a busy, high-work load, and often noisy Emergency Department environment. It may contain unintended and wholly unrecognized errors or omissions. LUIGI UGARTE MD Nov 14, 2021 00:05
[2021-11-14] MEDS ORDERED: SULF1TAB24 PO (01:08)
[2021-11-14] MEDS ORDERED: SMZ/TMP 800/160MG TABLET. PO ONE (01:15)
== END 2021-11-14 01:23 | disposition home or self-care (01) ==
LOC: ER 23:41
DX: S60.450A Superficial foreign body of right index finger, initial encounter (principal); L03.011 Cellulitis of right finger; M19.90 Unspecified osteoarthritis, unspecified site; F17.210 Nicotine dependence, cigarettes, uncomplicated; Z91.013 Allergy to seafood; Z88.5 Allergy status to narcotic agent; Z91.018 Allergy to other foods; W45.8XXA Other foreign body or object entering through skin, initial encounter; Y93.89 Activity, other specified; Y92.89 Other specified places as the place of occurrence of the external cause; Y99.8 Other external cause status
CPT/HCPCS: 99283; 99284

== ENCOUNTER 2022-01-08 18:56 | Emergency (ER) | payer OTHER ==
[~2022-01-08] VITALS: Ht 198.1 cm; Wt 109.7 kg
[2022-01-08 19:12] VITALS: BP 138/82
--- NOTE | 2022-01-08 19:54 | RAD ---
EXAM: Right knee, 4 views. HISTORY: Fall. Pain. COMPARISON: None. FINDINGS: 4 views of the right knee are obtained. There is no fracture, dislocation or subluxation. T here is no joint effusion. IMPRESSION: No acute osseous finding. Electronically signed by: Loraine Loaiza MD (01/08/2022 7:52 PM) [facility]
[2022-01-08] MEDS ORDERED: IBUPROFEN 600 MG TABLET. PO ONE (20:00)
[2022-01-08] MEDS ORDERED: ACETAMINOPHEN 500 MG TABLET PO ONE (20:00)
--- NOTE | 2022-01-08 20:18 | PHYS DOC ---
Past History Past Medical History: Arthritis, Bronchitis Additional Past Medical Histor: poor dental health, carpal tunnel syndrome Past Surgical History: Other Additional Past Surgical Histo: teeth extraction Smoking: Cigarettes Alcohol Use: None Drug Use: None General Adult EDM: Chief Complaint: KNEE INJURY HPI: HPI: ".. Slipped and fell on the ice yesterday... and hurt this Rt. knee.. it is still hurting today..." Patient is a 46 year old male with above hx who presents with injury Rt. knee. Initial injury resulted from a twisting type movement and fall on the ice yesterday. Patient localizes majority of his paininright medial collateral ligaments and meniscus area. Patient is able do straight leg lift. Stressing of medial ligament and right leg exacerbates pain. Patient does have some tenderness with isolation of meniscus on right medial side. Patient is able do straight leg lift. There is no ballottement of the patella. Distal neurovascular is equal to left leg. Patient denies previous injury to same leg. Patient denies other injuries in the fall. Patient normally follows with Dr. Lezama for care. No recent travel. No sick ill contacts. Normally healthy. Does smoke back up. Has not had COVID or flu vaccination. Review of Systems: Review of Systems: Constitutional: Denies fever or chills Eyes: Denies change in visual acuity HENT: Denies nasal congestion or sore throat Respiratory: Denies cough or shortness of breath Cardiovascular: Denies chest pain or edema GI: Denies abdominal pain, nausea, vomiting, bloody stools or diarrhea : Denies dysuria Musculoskeletal: Complains of right knee pain Integument: Denies rash Neurologic: Denies headache, focal weakness or sensory changes Endocrine: Denies polyuria or polydipsia Lymphatic: Denies swollen glands Psychiatric: Denies depression or anxiety Family History: Family History: Noncontributory to presentation Current Medications: Current Meds: Current Medications Medications (Trade) Dose Ordered Sig/Daniel Start Time Stop Time Status Last Admin Dose Admin Acetaminophen (Tylenol) 1,000 mg 1X ONCE 01/08/22 20:00 01/08/22 20:01 DC 01/08/22 19:58 1,000 MG Ibuprofen (Motrin) 600 mg 1X ONCE 01/08/22 20:00 01/08/22 20:01 DC 01/08/22 19:57 600 MG Allergies: Allergies: Allergies Coded Allergies Type Severity Reaction Last Updated Verified Fish Containing Products Allergy Intermediate 01/03/21 Yes codeine Allergy Intermediate 01/03/21 Yes morphine Allergy Intermediate Unknown 01/08/22 Yes shellfish derived Allergy Intermediate 01/03/21 Yes wheat Allergy Intermediate Itching 01/03/21 Yes gluten Allergy Mild Itching 01/03/21 Yes Uncoded Allergies Type Severity Reaction Last Updated Verified oreo cookies Allergy Mild Itching 12/05/20 Physical Exam: PE: Constitutional: Moderate acute distress, non-toxic appearance. [] HENT: Normocephalic, atraumatic, bilateral external ears normal, oropharynx moist, no oral exudates, nose normal. [] Eyes: PERRLA, EOMI, conjunctiva normal, no discharge. [] Neck: Normal range of motion, no tenderness, supple, no stridor. [] Cardiovascular:Heart rate regular rhythm, no murmur [] Lungs & Thorax: Bilateral breath sounds equal apex scattered wheezes on auscultation [] Abdomen: Bowel sounds normal, soft, no tenderness, no masses, no pulsatile masses. [] Skin: Warm, dry, no erythema, no rash. [] Back: No tenderness, no CVA tenderness. [] Extremities: No tenderness, no cyanosis, no clubbing, ROM intact, no edema. Except findings right knee as per HPI. Neurologic: Alert and oriented X 3, normal motor function, normal sensory function, no focal deficits noted. [] Psychologic: Affect anxious, judgement normal, mood normal. [] Current Patient Data: Vital Signs: Vital Signs Date Time Temp Pulse Resp B/P (MAP) Pulse Ox O2 Delivery O2 Flow Rate FiO2 01/08/22 19:12 97.9 91 18 138/82 (100) 100 Room Air EKG: EKG: [] Radiology/Procedures: Radiology/Procedures: [][address] [address] IMAGING REPORT Signed PATIENT: DONTE HEALY ACCOUNT: [id number] : 1975 LOCATION: ER AGE: 46 SEX: M EXAM STATUS: REG ER ORD. PHYSICIAN: LUIGI UGARTE MD REASON: fall, twisted on ice yesterday, medial collateral pain PROCEDURE: KNEE RIGHT 4V EXAM: Right knee, 4 views. HISTORY: Fall. Pain. COMPARISON: None. FINDINGS: 4 views of the right knee are obtained. There is no fracture, dislocation or subluxation. There is no joint effusion. IMPRESSION: No acute osseous finding. Electronically signed by: Loraine Burt MD (01/08/2022 7:52 PM) [facility] DICTATED AND SIGNED BY: LORAINE BURT MD DATE: 01/08/221950 CC: LUIGI UGARTE MD; LORAINE LEZAMA MD ~MTH0 0 Heart Score: C/O Chest Pain: N/A Risk Factors: Risk Factors: DM, Current or recent (<one month) smoker, HTN, HLP, family history of CAD, obesity. Risk Scores: Score 0 - 3: 2.5% MACE over next 6 weeks - Discharge Home Score 4 - 6: 20.3% MACE over next 6 weeks - Admit for Clinical Observation Score 7 - 10: 72.7% MACE over next 6 weeks - Early Invasive Strategies Course & Med Decision Making: Course & Med Decision Making Pertinent Labs and Imaging studies reviewed. (See chart for details) Patient wear Ang wrap. Elevate. Rest. Take Tylenol and ibuprofen for pain. Ice packs as needed for the next 2 to 3 days. Follow-up primary care. Return if any concerns. Consider irene-ray and 2 weeks if no improvement. May need follow-up Ortho. Consider PMC orthro. Impression: 1. Right medial collateral ligament tear 2. Possible right medial meniscus injury [] Dragon Disclaimer: Dragjenni Disclaimer: This electronic medical record was generated, in whole or in part, using a voice recognition dictation system. Departure Departure: Referrals: LORAINE LEZAMA MD (PCP) Moises Disclaimer This chart was dictated in whole or in part using Voice Recognition software in a busy, high-work load, and often noisy Emergency Department environment. It may contain unintended and wholly unrecognized errors or omissions. LUIGI UGARTE MD Jan 08, 2022 20:18
== END 2022-01-08 20:34 | disposition home or self-care (01) ==
LOC: ER 18:56
DX: S83.411A Sprain of medial collateral ligament of right knee, initial encounter (principal); M19.90 Unspecified osteoarthritis, unspecified site; F17.210 Nicotine dependence, cigarettes, uncomplicated; Z91.013 Allergy to seafood; Z88.5 Allergy status to narcotic agent; Z91.018 Allergy to other foods; W00.0XXA Fall on same level due to ice and snow, initial encounter; Y93.89 Activity, other specified; Y92.89 Other specified places as the place of occurrence of the external cause; Y99.8 Other external cause status
CPT/HCPCS: 73564; 99283

== ENCOUNTER 2022-01-15 13:53 | Emergency (ER) | payer OTHER ==
[~2022-01-15] VITALS: Ht 198.1 cm; Wt 109.7 kg
[2022-01-15 13:53] VITALS: BP 143/78
[2022-01-15] MEDS ORDERED: ORPHENADRINE CITRATE 60 MG/2 ML VIAL. IM ONE (14:30)
[2022-01-15] MEDS ORDERED: CYCL10TA19 PO (14:35)
--- NOTE | 2022-01-15 14:35 | PHYS DOC ---
Past History Past Medical History: Arthritis, Bronchitis Additional Past Medical Histor: poor dental health, carpal tunnel syndrome Past Surgical History: Other Additional Past Surgical Histo: teeth extraction Smoking: Cigarettes Alcohol Use: None Drug Use: None General Adult EDM: Chief Complaint: Neck Pain HPI: HPI: Patient is a 46-year-old male presents with neck pain. Range of motion is intact but produces pain. Denies injury. Patient reports taking ibuprofen prior to arrival. Patient states "I woke up with the pain". No other complaints. History of arthritis. Review of Systems: Review of Systems: ROS At least 10 ROS systems have been reviewed and are negative except as documented in the HPI. General: Negative except as outlined in HPI above. Skin: Negative except as outlined in HPI above. HEENT: Negative except as outlined in HPI above. Neck: Negative except as outlined in HPI above. Respiratory: Negative except as outlined in HPI above.. Cardiovascular: Negative except as outlined in HPI above. Abdomen: Negative except as outlined in HPI above. : Negative except as outlined in HPI above. Back/MSK: Negative except as outlined in HPI above. Neuro: Negative except as outlined in HPI above. Psych: Negative except as outlined in HPI above. Current Medications: Current Meds: Current Medications Medications (Trade) Dose Ordered Sig/Daniel Start Time Stop Time Status Last Admin Dose Admin Orphenadrine Citrate (Norflex) 60 mg 1X ONCE 01/15/22 14:30 01/15/22 14:31 UNV Allergies: Allergies: Allergies Coded Allergies Type Severity Reaction Last Updated Verified Fish Containing Products Allergy Intermediate 01/03/21 Yes codeine Allergy Intermediate 01/03/21 Yes morphine Allergy Intermediate Unknown 01/08/22 Yes shellfish derived Allergy Intermediate 01/03/21 Yes wheat Allergy Intermediate Itching 01/03/21 Yes gluten Allergy Mild Itching 01/03/21 Yes Uncoded Allergies Type Severity Reaction Last Updated Verified oreo cookies Allergy Mild Itching 12/05/20 Physical Exam: PE: Constitutional: Well developed, well nourished, no acute distress, non-toxic appearance. [] HENT: Normocephalic, atraumatic, bilateral external ears normal, oropharynx moist, no oral exudates, nose normal. [] Eyes: PERRLA, EOMI, conjunctiva normal, no discharge. [] Neck: Normal range of motion, tenderness on left side Cardiovascular:Heart rate regular rhythm, no murmur [] Lungs & Thorax: Bilateral breath sounds clear to auscultation [] Abdomen: Bowel sounds normal, soft, no tenderness, no masses, no pulsatile masses. [] Skin: Warm, dry, no erythema, no rash. [] Back: No tenderness, no CVA tenderness. [] Extremities: No tenderness, no cyanosis, no clubbing, ROM intact, no edema. [] Neurologic: Alert and oriented X 3, normal motor function, normal sensory function, no focal deficits noted. [] Psychologic: Affect normal, judgement normal, mood normal. [] Current Patient Data: Vital Signs: Vital Signs Date Time Temp Pulse Resp B/P (MAP) Pulse Ox O2 Delivery O2 Flow Rate FiO2 01/15/22 13:53 86 16 143/78 (99) 98 Room Air EKG: EKG: [] Radiology/Procedures: Radiology/Procedures: [] Heart Score: C/O Chest Pain: No Risk Factors: Risk Factors: DM, Current or recent (<one month) smoker, HTN, HLP, family history of CAD, obesity. Risk Scores: Score 0 - 3: 2.5% MACE over next 6 weeks - Discharge Home Score 4 - 6: 20.3% MACE over next 6 weeks - Admit for Clinical Observation Score 7 - 10: 72.7% MACE over next 6 weeks - Early Invasive Strategies Course & Med Decision Making: Course & Med Decision Making Pertinent Labs and Imaging studies reviewed. (See chart for details) [] 46-year-old male presents with neck pain. Range of motion is intact but produces pain. No injury. Patient took ibuprofen prior to arrival. Patient given Norflex to help with symptoms. Advised patient use ice to the area. Dragon Disclaimer: Dragon Disclaimer: This electronic medical record was generated, in whole or in part, using a voice recognition dictation system. Departure Departure: Impression: Primary Impression: Neck pain Disposition: HOME / SELF CARE / HOMELESS Condition: STABLE Referrals: ANETTE LEZAMA MD (PCP) Patient Instructions: Soft Tissue Injury of the Neck, [id number] Additional Instructions: You were seen in the emergency room for neck pain. I'm sending you home with a prescription for muscle relaxer to help with discomfort. You can also continue taking ibuprofen as scheduled to help with pain. If pain gets worse please return to the emergency room. Otherwise follow-up with your PCP for further management EMERGENCY DEPARTMENT GENERAL DISCHARGE INSTRUCTIONS Thank you for coming to [facility] (ED) today and trusting us with you care. We trust that you had a positivie experience in our Emergency Department. If you wish to speak to the department management, you may call the director at [phone]. YOUR FOLLOW UP INSTRUCTIONS ARE FOLLOWS: 1. Do you have a private Doctor? If you do not have a private doctor, please ask for a resource list of physicians or clinics that may be able to assist you with follow up care. 2. The Emergency Physician has interpreted your x-rays. The X-Ray specialist will also review them. If there is a change in the findings, you will be notified in 48 hours when at all possible. 3. A lab test or culture has been done, your results will be reviewed and you will be notified if you need a change in treatment. ADDITIONAL INSTRUCTIONS AND INFORMATION: 1. Your care today has been supervised by a physician who is specially trained in emergency care. Many problems require more than one evaluation for a complete diagnosis and treatment. We recommend that you schedule your follow up appointment as recommended to ensure complete treatment of you illness or injury. If you are unable to obtain follow up care and continue to have a problem, or if your condition worsens, we recommend that you return to the ED. 2. We are not able to safely determine your condition over the phone nor are we able to give sound medical advice over the phone. For these safety reasons, if you call for medical advice we will ask you to come to the ED for further evaluation. 3. If you have any questions regarding these discharge instructions please call the ED at [phone]. SAFETY INFORMATION: In the interest of safety, wellness, and injury prevention; we encourage you to wear your sealbelt, if you smoke; quite smoking, and we encourage family to use a protective helmet for bicycling and other sporting events that present an increased risk for head injury. IF YOUR SYMPTOMS WORSEN OR NEW SYMPTOMS DEVELOP, OR YOU HAVE CONCERNS ABOUT YOUR CONDITION; OR IF YOUR CONDITION WORSENS WHILE YOU ARE WAITING FOR YOUR FOLLOW UP APPOINTMENT; EITHER CONTACT YOUR PRIMARY CARE DOCTOR, THE PHYSICIAN WHOSE NAME AND NUMBER YOU WERE GIVEN, OR RETURN TO THE ED IMMEDIATELY. Scripts Cyclobenzaprine Hcl (CYCLOBENZAPRINE HCL) 10 Mg Tablet 1 TAB PO TID PRN for PAIN for 10 Days, #30 TAB 0 Refills Prov: DEB ROBERSON APRN 01/15/22 DEB ROBERSON APRN Jan 15, 2022 14:35
== END 2022-01-15 14:59 | disposition home or self-care (01) ==
LOC: ER 13:53
DX: M54.2 Cervicalgia (principal); M19.90 Unspecified osteoarthritis, unspecified site; F17.210 Nicotine dependence, cigarettes, uncomplicated; Z91.013 Allergy to seafood; Z88.5 Allergy status to narcotic agent; Z91.018 Allergy to other foods
CPT/HCPCS: 96372; 99283; J2360